=== PATIENT | female | born 1965 | race Caucasian/White ===

== ENCOUNTER 2021-01-18 17:06 | Inpatient (IN) | payer OTHER, MEDICAID, SELFPAY ==
--- NOTE | ~2021-01-18 | MR_ITS ---
MRI OF THE BRAIN WITH AND WITHOUT IV CONTRAST INDICATION: Cognitive decline. COMPARISON: None available. TECHNIQUE: Multiplanar multisequence MR imaging of the brain was obtained without and following the administration of 6.5 mL of Gadavist without complication. FINDINGS: There is no pathologic intracranial enhancement. There are T2 signal changes throughout the supratentorial white matter with a periventricular concentration. Differential considerations include the sequela of demyelinating disease, vasculopathy, or other white matter process. There are no enhancing lesions. There is no hydrocephalus, extra-axial surface collection, or herniation. The major flow voids at the skull base are preserved. There is no acute infarct on diffusion-weighted imaging. There is no intracranial hemorrhage on the gradient recalled echo acquisition. The midline structures are normal. The cerebellar tonsils are normally positioned. The cerebellum and brainstem are normal. The craniocervical junction is normal. Osseous marrow signal intensity is homogenous. The visualized soft tissues are unremarkable. MR/MR head/brain wo/w con IMPRESSION: There are T2 signal changes throughout the supratentorial white matter with a periventricular concentration. Differential considerations include the sequela of demyelinating disease, vasculopathy, or other white matter process. There are no enhancing lesions.
[2021-01-18 18:22] VITALS: BP 119/67; PULSE 90; RESP 18; TEMP 36.8; O2SAT 95; BMI 21.1
[2021-01-18 20:32] LABS: MANUAL DIFF FLAG NO
[2021-01-18 20:33] LABS: Basophils Percent Auto 0.3 % (0-2); Eosinophils Percent Auto 0.1 % (0-4); Hemoglobin 13.7 g/dl (12.0-16.0); Imm Gran Abs Auto 0.04 X10*3/uL (0.00-0.03); Imm Gran Pct Auto 0.5 % (0.0-0.4); Lymphocytes Absolute Auto 3.1 X10*3/uL (1.2-4.9); Mean Corpuscular HGB Conc 32.6 g/dl (31.0-35.0); Mean Corpuscular Hemoglobin 26.5 pg (27.0-33.0); Mean Corpuscular Volume 81.2 fL (80-98); Mean Platelet Volume 8.5 fL (9.4-12.3); Monocytes Absolute Auto 0.4 X10*3/uL (0.1-1.2); Monocytes Percent Auto 4.6 % (2-11); Neutrophils Absolute Auto 4.1 X10*3/uL (2.0-8.3); Neutrophils Percent Auto 53.5 % (45-73); Platelet Count 299 X10*3/uL (160-400); Red Blood Count 5.17 X10*6/uL (4.20-5.50); Red Cell Distribution Width 15.2 % (11.0-16.0); White Blood Count 7.6 X10*3/uL (4.8-10.8)
[2021-01-18 21:02] LABS: Ethanol < 10 mg/dL
[2021-01-18 21:06] LABS: Alanine Aminotransferase 18 U/L (0-31); Albumin Level 4.2 g/dL (3.5-5.0); Alkaline Phosphatase 80 U/L (39-117); Anion Gap 12 (12-20); Aspartate Amino Transferase 15 U/L (5-31); Bilirubin Total 0.3 mg/dL (0.0-1.0); Blood Urea Nitrogen 11 mg/dL (9-16); Carbon Dioxide 26 mmol/L (22-29); Chloride 106 mmol/L (96-108); Estimated Glomerular Filt Rate > 60; Glucose Random 109 mg/dL (60-115); Potassium 4.1 mmol/L (3.3-5.1); Sodium 140 mmol/L (135-145); Total Protein 6.6 g/dL (6.5-8.0)
[2021-01-18 21:06] LABS: Magnesium 2.2 mg/dL (1.6-2.6)
--- NOTE | 2021-01-18 22:10 | PC.NURSE ---
MD AT BEDSIDE WITH PT. PT IS TEARFUL SPEAKING WITH MD. PT ALERT, RESPIRATIONS EASY, N/L. CONTACTING POISON CONTROL AT THIS TIME.
--- NOTE | 2021-01-18 22:21 | ECG_ITS ---
Test Reason : OD Blood Pressure : / mmHG Vent. Rate : 083 BPM Atrial Rate : 083 BPM P-R Int : 146 ms QRS Dur : 094 ms QT Int : 386 ms P-R-T Axes : 080 077 070 degrees QTc Int : 453 ms Normal sinus rhythm Biatrial enlargement Nonspecific ST abnormality Abnormal ECG No previous ECGs available Referred By: Jennifer Valdez Electronically Signed By:DANNY SIERRA MD
--- NOTE | 2021-01-18 22:22 | ED.ALCOHOL ---
HPI - Alcohol General Chief Complaint: ETOH/Substance Use Stated Complaint: overdose Time Seen by Provider: 01/18/21 22:19 Source: patient Mode of arrival: ambulatory History of Present Illness HPI narrative: 55-year-old female without significant past medical history other than history of alcohol dependence who states that she has been without alcohol for ?weeks? but then today was unable to control her urge and drink a combination of hand distance learning administrator is a that were both isopropyl and ethyl alcohol and formulation. Patient states that the total volume was approximately 6 oz. She also states that EN route her stopped off and she brought a beer which she drank prior to arrival. She denies any suicidal ideation, but states that she really needs help and is tearful. She states that she has a really bad headache but denies any visual disturbances, nausea, vomiting. 10/20/2034: Patient cleared by poison Control. Related Data Allergies Allergy/AdvReac Type Severity Reaction Status Date / Time No Known Allergies Allergy Verified 01/18/21 18:21 Review of Systems Review of Systems: Pertinent positives and negatives as stated in HPI 10 point review of systems is otherwise negative. PMFSH Past Medical History Source: nursing notes reviewed Medical History Alcohol abuse Social History Social History Advance Directives: No Advance Directives Information Provided: Yes Physical Exam Vital Signs: Vital Signs: Last Vital Signs Temp 98.2 F 01/18/21 18:22 Pulse 90 01/18/21 18:22 Resp 18 01/18/21 18:22 BP 119/67 01/18/21 18:22 Pulse Ox 95 01/18/21 18:22 Body Mass Index 21.1 VITAL SIGNS: Reviewed. GENERAL: Well developed, well nourished, in no acute distress. HEAD: Normocephalic/atraumatic EYES: PERRLA, EOMI NOSE: Nares patent bilateral OROPHARYNX: no oral lesions noted, posterior pharynx clear NECK: Supple, no adenopathy LUNGS: Normal breath sounds. No adventitious sounds or accessory muscle use. SpO2<95> CARDIOVASCULAR: Regular rate and rhythm without noted murmurs ABDOMEN: Soft, non-tender, non-distended with bowel sounds. NEUROLOGIC: Alert and oriented x 4. PSYCH: Tearful Course Course Course Narrative: This is a 55-year-old female with history and clinical presentation consistent with alcohol dependence which prompted her to use hand distance learning administrator as an alcohol source. Poison control was contacted and given the time frame they cleared the patient for any toxic symptoms. In addition, patient denies any suicidal or depressive symptoms and states that she wants assistance with abstaining from alcohol. Review of all laboratory investigations are negative for any acute findings. Care team came by and discussed with patient the inability to provide an inpatient setting for her alcohol detox rehabilitation. Patient also endorses that she wishes to go home. Confirmed with the care team that summary from the recovery team would contact the patient tomorrow in an attempt to arrange for an outpatient/inpatient program that would further assist the patient. Otherwise, patient is discharged home in stable condition. MDM - Alcohol Lab Data Result diagrams: 01/18/21 20:24 01/18/21 20:25 Labs: Lab Results 01/18/21 01/18/21 01/18/21 Range/Units 20:24 20:24 20:24 WBC 7.6 (4.8-10.8) X10*3/uL RBC 5.17 (4.20-5.50) X10*6/uL Hgb 13.7 (12.0-16.0) g/dl Hct 42.0 (37-47) % MCV 81.2 (80-98) fL MCH 26.5 L (27.0-33.0) pg MCHC 32.6 (31.0-35.0) g/dl RDW 15.2 (11.0-16.0) % Plt Count 299 (160-400) X10*3/uL MPV 8.5 L (9.4-12.3) fL Immature Gran % (Auto) 0.5 H (0.0-0.4) % Neut % (Auto) 53.5 (45-73) % Lymph % (Auto) 41.0 H (20-40) % [place] % (Auto) 4.6 (2-11) % Eos % (Auto) 0.1 (0-4) % Baso % (Auto) 0.3 (0-2) % Lymph # (Auto) 3.1 (1.2-4.9) X10*3/uL [place] # (Auto) 0.4 (0.1-1.2) X10*3/uL Eos # (Auto) 0.0 (0.0-0.4) X10*3/uL Baso # (Auto) 0.0 (0.0-0.2) X10*3/uL Abs Immat Gran (auto) 0.04 H (0.00-0.03) X10*3/uL Absolute Neuts (auto) 4.1 (2.0-8.3) X10*3/uL Absolute Nucleated RBC 0.000 (0.0-0.012) X10*3/uL Nucleated RBC % (auto) 0.0 (0.0-0.2) /100WBC PT (10.8-13.0) SEC INR (0.9-1.1) Sodium (135-145) mmol/L Potassium (3.3-5.1) mmol/L Chloride (96-108) mmol/L Carbon Dioxide (22-29) mmol/L Anion Gap (12-20) BUN (9-16) mg/dL Creatinine (0.5-1.4) mg/dL Estim Creat Clear Calc Estimated GFR Random Glucose (60-115) mg/dL Calcium (8.4-10.2) mg/dL Magnesium 2.2 (1.6-2.6) mg/dL Total Bilirubin (0.0-1.0) mg/dL AST (5-31) U/L ALT (0-31) U/L Alkaline Phosphatase (39-117) U/L Total Protein (6.5-8.0) g/dL Albumin (3.5-5.0) g/dL Urine Color Urine Appearance Urine pH (5.0-8.0) Ur Specific Wren (1.005-1.025) Urine Protein (NEG-TRACE) MG/DL Urine Glucose (UA) (NEG) MG/DL Urine Ketones (NEG) MG/DL Urine Blood (NEG) Urine Nitrite (NEG) Ur Leukocyte Esterase (NEG) Urine RBC (0) /HPF Urine WBC (0-4) /HPF Ur Squamous Epith Cells /LPF Urine Bacteria /LPF Urine Mucus /LPF Salicylates (15-30) mg/dL Urine Opiates Screen (Not Detect) Acetaminophen (<30) mcg/mL Ur Barbiturates Screen (Not Detect) Ur Phencyclidine Scrn (Not Detect) Ur Amphetamines Screen (Not Detect) U Benzodiazepines Scrn (Not Detect) Urine Cocaine Screen (Not Detect) U Marijuana (THC) Screen (Not Detect) Ethyl Alcohol < 10 mg/dL 01/18/21 01/18/21 01/18/21 Range/Units 20:25 23:13 23:13 WBC (4.8-10.8) X10*3/uL RBC (4.20-5.50) X10*6/uL Hgb (12.0-16.0) g/dl Hct (37-47) % MCV (80-98) fL MCH (27.0-33.0) pg MCHC (31.0-35.0) g/dl RDW (11.0-16.0) % Plt Count (160-400) X10*3/uL MPV (9.4-12.3) fL Immature Gran % (Auto) (0.0-0.4) % Neut % (Auto) (45-73) % Lymph % (Auto) (20-40) % [place] % (Auto) (2-11) % Eos % (Auto) (0-4) % Baso % (Auto) (0-2) % Lymph # (Auto) (1.2-4.9) X10*3/uL [place] # (Auto) (0.1-1.2) X10*3/uL Eos # (Auto) (0.0-0.4) X10*3/uL Baso # (Auto) (0.0-0.2) X10*3/uL Abs Immat Gran (auto) (0.00-0.03) X10*3/uL Absolute Neuts (auto) (2.0-8.3) X10*3/uL Absolute Nucleated RBC (0.0-0.012) X10*3/uL Nucleated RBC % (auto) (0.0-0.2) /100WBC PT (10.8-13.0) SEC INR (0.9-1.1) Sodium 140 (135-145) mmol/L Potassium 4.1 (3.3-5.1) mmol/L Chloride 106 (96-108) mmol/L Carbon Dioxide 26 (22-29) mmol/L Anion Gap 12 (12-20) BUN 11 (9-16) mg/dL Creatinine 0.69 (0.5-1.4) mg/dL Estim Creat Clear Calc 89.0 Estimated GFR > 60 Random Glucose 109 (60-115) mg/dL Calcium 9.0 (8.4-10.2) mg/dL Magnesium (1.6-2.6) mg/dL Total Bilirubin 0.3 (0.0-1.0) mg/dL AST 15 (5-31) U/L ALT 18 (0-31) U/L Alkaline Phosphatase 80 (39-117) U/L Total Protein 6.6 (6.5-8.0) g/dL Albumin 4.2 (3.5-5.0) g/dL Urine Color YELLOW Urine Appearance CLEAR Urine pH 6.0 (5.0-8.0) Ur Specific Wren 1.010 (1.005-1.025) Urine Protein NEG (NEG-TRACE) MG/DL Urine Glucose (UA) NEG (NEG) MG/DL Urine Ketones NEG (NEG) MG/DL Urine Blood NEG (NEG) Urine Nitrite NEG (NEG) Ur Leukocyte Esterase NEG (NEG) Urine RBC 0-2 (0) /HPF Urine WBC 0-2 (0-4) /HPF Ur Squamous Epith Cells TRACE /LPF Urine Bacteria NONE /LPF Urine Mucus TRACE /LPF Salicylates (15-30) mg/dL Urine Opiates Screen Not Detected (Not Detect) Acetaminophen (<30) mcg/mL Ur Barbiturates Screen Not Detected (Not Detect) Ur Phencyclidine Scrn Not Detected (Not Detect) Ur Amphetamines Screen Not Detected (Not Detect) U Benzodiazepines Scrn Not Detected (Not Detect) Urine Cocaine Screen Not Detected (Not Detect) U Marijuana (THC) Screen Not Detected (Not Detect) Ethyl Alcohol mg/dL 01/18/21 01/18/21 Range/Units 23:14 23:14 WBC (4.8-10.8) X10*3/uL RBC (4.20-5.50) X10*6/uL Hgb (12.0-16.0) g/dl Hct (37-47) % MCV (80-98) fL MCH (27.0-33.0) pg MCHC (31.0-35.0) g/dl RDW (11.0-16.0) % Plt Count (160-400) X10*3/uL MPV (9.4-12.3) fL Immature Gran % (Auto) (0.0-0.4) % Neut % (Auto) (45-73) % Lymph % (Auto) (20-40) % [place] % (Auto) (2-11) % Eos % (Auto) (0-4) % Baso % (Auto) (0-2) % Lymph # (Auto) (1.2-4.9) X10*3/uL [place] # (Auto) (0.1-1.2) X10*3/uL Eos # (Auto) (0.0-0.4) X10*3/uL Baso # (Auto) (0.0-0.2) X10*3/uL Abs Immat Gran (auto) (0.00-0.03) X10*3/uL Absolute Neuts (auto) (2.0-8.3) X10*3/uL Absolute Nucleated RBC (0.0-0.012) X10*3/uL Nucleated RBC % (auto) (0.0-0.2) /100WBC PT 10.0 L (10.8-13.0) SEC INR 0.8 L (0.9-1.1) Sodium (135-145) mmol/L Potassium (3.3-5.1) mmol/L Chloride (96-108) mmol/L Carbon Dioxide (22-29) mmol/L Anion Gap (12-20) BUN (9-16) mg/dL Creatinine (0.5-1.4) mg/dL Estim Creat Clear Calc Estimated GFR Random Glucose (60-115) mg/dL Calcium (8.4-10.2) mg/dL Magnesium (1.6-2.6) mg/dL Total Bilirubin (0.0-1.0) mg/dL AST (5-31) U/L ALT (0-31) U/L Alkaline Phosphatase (39-117) U/L Total Protein (6.5-8.0) g/dL Albumin (3.5-5.0) g/dL Urine Color Urine Appearance Urine pH (5.0-8.0) Ur Specific Wren (1.005-1.025) Urine Protein (NEG-TRACE) MG/DL Urine Glucose (UA) (NEG) MG/DL Urine Ketones (NEG) MG/DL Urine Blood (NEG) Urine Nitrite (NEG) Ur Leukocyte Esterase (NEG) Urine RBC (0) /HPF Urine WBC (0-4) /HPF Ur Squamous Epith Cells /LPF Urine Bacteria /LPF Urine Mucus /LPF Salicylates < 5.0 L (15-30) mg/dL Urine Opiates Screen (Not Detect) Acetaminophen < 1 (<30) mcg/mL Ur Barbiturates Screen (Not Detect) Ur Phencyclidine Scrn (Not Detect) Ur Amphetamines Screen (Not Detect) U Benzodiazepines Scrn (Not Detect) Urine Cocaine Screen (Not Detect) U Marijuana (THC) Screen (Not Detect) Ethyl Alcohol mg/dL Discharge Plan Discharge Clinical Impression: Alcohol dependence, Accidental poisoning by isopropanol Patient Disposition: Home, Self-Care Instructions: Alcohol Dependence (ED), Alcohol Use Disorder (ED) Additional Instructions: Please resume all home medications as prescribed. The recovery team will be contacting you in the morning to discuss options for your continued abstinence from alcohol. Return to the emergency room for any acute worsening of your symptoms, or should you require further support. Referrals: Physician,Unknown [Primary Care Provider] - 2 days
--- NOTE | 2021-01-18 22:30 | PC.NURSE ---
POISON CONTROL CONTACTED SPOKE WITH [facility]. PT IS CLEARED BY POISON CONTROL SINCE LABS ARE NORMAL AND IT IS 7 HOURS POST INGESTION. NO FURTHER ORDERS NEEDED. DR. ANGELES AWARE.
--- NOTE | 2021-01-18 22:59 | PC.NURSE ---
CARE TEAM AT BEDSIDE SPEAKING WITH PT.
--- NOTE | 2021-01-18 23:18 | MHC.CARE ---
Met with pt regarding substance use. Pt reports she is interested in detox services due to her daily alcohol consumption. Pt reports she feels unwell however is not interested in remaining in the ED to await detox admission.
--- NOTE | 2021-01-18 23:22 | PC.NURSE ---
labs drawn to lab. UA obtained. Pt up to restroom with steady even gait to restroom.
[2021-01-18 23:33] LABS: Glucose Urine UA NEG (NEG); Leukocyte Esterase Urine NEG (NEG); Nitrite Urine NEG (NEG); Urine Blood NEG (NEG); Urine Ketones NEG (NEG); Urine Protein NEG (NEG-TRACE)
[2021-01-18 23:34] LABS: INTERNATIONAL NORM RATIO 0.8 (0.9-1.1)
[2021-01-18 23:35] LABS: Appearance Urine CLEAR; Color Urine YELLOW
[2021-01-18 23:43] LABS: Mucus Urine TRACE /LPF; RBC Urine 0-2 /HPF (0); Squamous Epithelial Cell Urine TRACE /LPF; WBC Urine 0-2 /HPF (0-4)
[2021-01-18 23:51] LABS: Amphetamine Screen Urine Not Detected (Not Detect); Barbiturates, Urine Not Detected (Not Detect); Benzodiazepines Screen Urine Not Detected (Not Detect); Cannabinoid Screen Urine Not Detected (Not Detect); Cocaine Screen Urine Not Detected (Not Detect); Opiate Screen Urine Not Detected (Not Detect); Phencyclidine Screen Urine Not Detected (Not Detect)
[2021-01-18 23:56] LABS: Salicylate < 5.0 mg/dL (15-30)
[2021-01-18 23:57] LABS: Acetaminophen LAB < 1 mcg/mL (<30)
[2021-01-19] MEDS: Acetaminophen 325 MG TABLET 975 MG PO (00:46)
--- NOTE | 2021-01-19 00:47 | PC.NURSE ---
PT MEDICATED WITH TYLENOL PER EMAR.
--- NOTE | 2021-01-19 01:25 | PC.NURSE ---
pt now stating im having suicidal tendencies. aware and at the bedside with pt. Report given to XAVIER Villagran, Pt moved to the pod.
[2021-01-19] MEDS: chlordiazePOXIDE HCl 25 MG CAPSULE PO (01:42)
[2021-01-19 01:44] VITALS: BP 114/74; PULSE 75; RESP 16; TEMP 36.4; O2SAT 97
--- NOTE | 2021-01-19 01:50 | PC.NURSE ---
Patient just got transferred in to ED POD from main ED, patient alert and oriented, endorses suicidality, patient reported she under reported her drinking habit to the ED staff, patient reported she has a very bad headache received Tylenol 975 mg in ED at 0015 with no effect. CIWA assessed scored 11, provider notified/ordered Librium 25 mg/administered as ordered/pending effect, will continue to monitor.
[2021-01-19 01:59] LABS: COVID-19 Test Negative (Negative); IDNOW Serial# 9DD0AD1C
[2021-01-19 08:16] VITALS: BP 132/78; PULSE 92; TEMP 36; O2SAT 97
[2021-01-19] MEDS: chlordiazePOXIDE HCl 25 MG CAPSULE 50 MG PO (08:26)
[2021-01-19] MEDS: Acetaminophen 325 MG TABLET 650 MG PO (08:26)
[2021-01-19] MEDS: Baclofen 10 MG TABLET PO ×2 (08:51→21:36)
[2021-01-19] MEDS: Levothyroxine Sodium 25 MCG TABLET PO (08:51)
[2021-01-19] MEDS: buPROPion HCl XL 300 MG TAB.ER.24H PO ×2 (08:51→21:36)
--- NOTE | 2021-01-19 11:13 | MHC.CARE ---
Pt is a 55 year old female who presented to [facility] for help with her alcohol use and wanting assistance accessing treatment. Pt reported initially upon discharge suicidal ideation with a plan to prevent discharge, I minimized my alcohol consumption and wanted to stay to get help getting further treatment . Pt reports long periods of sobriety however has struggled with maintaining her sobriety since 2018.Pt reports significant alcohol use and reports she will drink whatever she has access to. Pt denies sleep and appetite disturbances. Pt denies SI/HI/AH/VH or history. Pt advocating for a detox placement.
[2021-01-19 11:43] VITALS: BP 135/69; PULSE 80; TEMP 36.9; O2SAT 98
--- NOTE | 2021-01-19 12:26 | MHC.CARE ---
Pts Ankush, left a VM for t/w stating i have important informatin to provide . CARE Team attempting to contact , for further collateral information.
[2021-01-19 13:46] VITALS: BP 113/78; PULSE 85; RESP 18; TEMP 36.1; O2SAT 95
--- NOTE | 2021-01-19 16:34 | PC.NURSE ---
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
[2021-01-19] MEDS: traZODone HCL 100 MG TABLET PO (21:36)
[2021-01-19] MEDS: Doxepin HCl 25 MG CAPSULE 100 MG PO (21:36)
--- NOTE | 2021-01-19 22:40 | PC.NURSE ---
Patient compliant with HS PO medication.
[2021-01-20 06:00] VITALS: BP 112/67; PULSE 72; RESP 12; TEMP 36.8; O2SAT 98
[2021-01-20] MEDS: Levothyroxine Sodium 25 MCG TABLET PO (07:10)
--- NOTE | 2021-01-20 08:02 | MHC.CARE ---
51A filed. Pt not aware.
[2021-01-20] MEDS: Baclofen 10 MG TABLET PO ×2 (09:14→20:24)
[2021-01-20 09:26] VITALS: BP 101/69; PULSE 80; RESP 16; TEMP 36.5; O2SAT 99
[2021-01-20] MEDS: chlordiazePOXIDE HCl 25 MG CAPSULE 50 MG PO (11:17)
--- NOTE | 2021-01-20 13:27 | MHC.CARE ---
Bed search exhausted.
[2021-01-20 15:29] VITALS: RESP 16
[2021-01-20 16:37] VITALS: RESP 16
[2021-01-20] MEDS: hydrOXYzine HCL 50 MG TABLET PO (20:24)
[2021-01-20] MEDS: Doxepin HCl 25 MG CAPSULE 100 MG PO (20:24)
[2021-01-20] MEDS: traZODone HCL 100 MG TABLET PO (20:24)
[2021-01-20] MEDS: buPROPion HCl XL 300 MG TAB.ER.24H PO (20:25)
[2021-01-20] MEDS: LORazepam 1 MG TABLET PO (20:25)
--- NOTE | 2021-01-20 21:00 | PC.NURSE ---
Patient reported she is withdrawing, scored 5 on CIWA mainly for headache, provider ordered Ativan 1 mg, administered with her rest of HS medication, no other distress reported, will continue to monitor.
--- NOTE | 2021-01-21 | ECG_ITS ---
Test Reason : QTC Blood Pressure : / mmHG Vent. Rate : 067 BPM Atrial Rate : 067 BPM P-R Int : 154 ms QRS Dur : 102 ms QT Int : 424 ms P-R-T Axes : 071 068 054 degrees QTc Int : 448 ms Normal sinus rhythm Possible Left atrial enlargement Incomplete right bundle branch block Nonspecific ST abnormality Abnormal ECG When compared with ECG of 18-JAN-2021 17:12, No significant changes seen Referred By: Roshni Mcneil Electronically Signed By:MINERVA MALDONADO
[2021-01-21 05:52] VITALS: BP 105/66; PULSE 72; RESP 16; TEMP 36.6; O2SAT 100
--- NOTE | 2021-01-21 07:07 | PC.NURSE ---
received report from prior RN patient appears in no distress appears asleep breathing even and unlabored.
[2021-01-21] MEDS: Levothyroxine Sodium 25 MCG TABLET PO (07:12)
[2021-01-21 07:27] VITALS: BP 116/76; PULSE 69; RESP 15; TEMP 36.4; O2SAT 96
[2021-01-21] MEDS: Baclofen 10 MG TABLET PO ×2 (08:30→21:18)
[2021-01-21] MEDS: buPROPion HCl XL 300 MG TAB.ER.24H PO (09:00)
[2021-01-21] MEDS: hydrOXYzine HCL 50 MG TABLET PO (14:07)
[2021-01-21] MEDS: LORazepam 0.5 MG TABLET PO (15:59)
[2021-01-21 18:00] VITALS: BP 116/57; PULSE 75; TEMP 36.7
[2021-01-21] MEDS: traZODone HCL 100 MG TABLET PO (21:18)
[2021-01-21] MEDS: Doxepin HCl 25 MG CAPSULE 100 MG PO (21:18)
--- NOTE | 2021-01-22 00:24 | PC.ADMIT ---
Patient is a 55 year old Hungarian speaking female admitted as a CV admission to at 1645 and placed on 5 minute safety checks. She was admitted due to alcohol use and was evaluated initially for an EATs bed but then voiced SI patient met criteria for IPLOC. Patient has no previous admission to but has been in multiple treatment facilities in the past. She has apparently been consuming any products that contain alcohol in them. 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 Patient has significant PTSD symptoms and her expressed concerns to the CARE team. She has no other medical issues per her report. Patient said her SI is more related to her chronic use of alcohol rather than a desire to attempt a suicide via an acute method. Patient initially expressed mild withdrawal symptoms but was asleep before 2200 and resting quietly. Provider was notified of admission. Patient was able to complete the paperwork and was active during the admission process. She also ate dinner, showered and took HS medications. Patient safety checks are now 15 minutes.
[2021-01-22 05:43] VITALS: BP 135/66; PULSE 62; RESP 16; TEMP 35.8; O2SAT 97
[2021-01-22] MEDS: Levothyroxine Sodium 25 MCG TABLET PO (06:41)
[2021-01-22 08:34] LABS: Cholesterol 188 mg/dL; HDL Cholesterol 51 mg/dL; LDL Cholesterol Calculated 109 mg/dl; Triglycerides 141 mg/dL
[2021-01-22 08:54] LABS: Thyroid Stimulating Hormone 0.19 uIU/mL (0.32-4.0)
[2021-01-22] MEDS: Baclofen 10 MG TABLET PO ×2 (09:24→21:39)
[2021-01-22] MEDS: buPROPion HCl XL 300 MG TAB.ER.24H PO (09:24)
[2021-01-22 10:14] LABS: Folate 12.3 ng/mL (> or = 4.0); Vitamin B12 < 146 pg/mL (200-900)
[2021-01-22 10:37] LABS: Estimated Average Glucose 97 mg/dL
[2021-01-22] MEDS: Gabapentin 100 MG CAPSULE 200 MG PO ×2 (14:41→21:40)
[2021-01-22] MEDS: Folic Acid 1 MG TABLET PO (14:41)
[2021-01-22] MEDS: Cyanocobalamin (Vitamin B-12) 1,000 MCG TABLET 1000 MCG PO (14:41)
[2021-01-22] MEDS: Thiamine HCL 100 MG TABLET PO (14:41)
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
[2021-01-22] MEDS: Nicotine 14 MG PATCH.TD24 TRANSDERMA (15:41)
[2021-01-22 18:00] VITALS: BP 133/68; PULSE 77; TEMP 36.4
[2021-01-22] MEDS: Doxepin HCl 25 MG CAPSULE 100 MG PO (21:39)
[2021-01-22] MEDS: Acetaminophen 325 MG TABLET 650 MG PO (21:39)
[2021-01-23 05:00] VITALS: BP 137/86; PULSE 70; TEMP 35.7; O2SAT 100
[2021-01-23] MEDS: Levothyroxine Sodium 25 MCG TABLET PO (05:06)
[2021-01-23] MEDS: Nicotine 14 MG PATCH.TD24 TRANSDERMA (08:29)
[2021-01-23] MEDS: buPROPion HCl XL 300 MG TAB.ER.24H PO (08:30)
[2021-01-23] MEDS: Gabapentin 100 MG CAPSULE 200 MG PO ×3 (08:30→21:03)
[2021-01-23] MEDS: Baclofen 10 MG TABLET PO ×2 (08:30→21:04)
[2021-01-23] MEDS: Folic Acid 1 MG TABLET PO (08:30)
[2021-01-23] MEDS: Thiamine HCL 100 MG TABLET PO (08:30)
[2021-01-23] MEDS: Cyanocobalamin (Vitamin B-12) 1,000 MCG TABLET 1000 MCG PO (08:30)
--- NOTE | 2021-01-23 09:45 | P.PNPSI_ITS ---
Subjective Subjective Date of Service: 01/24/21 Reason For Visit: SI Subjective Notes: Conditional Voluntary Healthcare Proxy: No Guardianship: No Interim History: Pt presents as tearful, does to some extend minimize impact of her alcohol use on her children and . 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 Pt tearful about many losses including not being able to get a job, having career on hold which she states she really loved. She reports feeling less anxious. She describes mood as depressed, h opeless, guilt/shame related to substance use. Per , some concerns about bizarre behaviors and wondering underlying cog/memory problems due to alcohol use. Will do head image and MOCA once mood more stable. 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 Medication Compliance: Yes Side effects from medications: No Attending Groups: Yes Review of Systems Review of Systems Pertinent positives and negatives as stated in HPI 10 point review of systems is otherwise negative. Constitutional: Reports weakness Cardiovascular: Denies chest pain, Denies lightheadedness and Denies dyspnea Respiratory: Denies dyspnea Gastrointestinal: Denies constipation and Denies diarrhea Denies tremor(s) and Reports weakness Mental Status Exam Mental Status Exam Narrative: Appearance: casually groomed, fair hygiene, in NAD Behavior: calm, cooperative Psychomotor: no agitation or retardation noted Speech: clear, normal rate/rhythm/volume, spontaneous TP: linear TC: no signs of psychosis, hopeless/helpless Mood: depressed Affect:blunted SI:passive, no plan or intent HI:none AH/VH:none Delusions:none Insight/judgment:fair x 2. Memory/cog: alert, oriented x 3. will complete moca as mood more stable Diagnostics Vital Signs (24Hr): Vital Signs - 24 hr 01/23/21 17:39 01/24/21 06:00 Temperature 97.8 F 96.9 F Pulse Rate 74 63 Respiratory Rate 16 16 Blood Pressure 126/76 134/65 Pulse Oximetry 99 97 Body Mass Index 21.1 Labs Results: 01/18/21 20:24 01/18/21 20:25 Labs: Laboratory Results - last 48 hr 01/22/21 01/22/21 07:58 07:59 Estimat Average Glucose 97 Hemoglobin A1c % 5.0 Vitamin B12 < 146 L Folate 12.3 Medications Medications Current Medications Generic Name Dose Route Start Last Admin Trade Name Freq PRN Reason Stop Dose Admin Acetaminophen 650 mg 01/21/21 14:05 01/22/21 21:39 Acetaminophen 325 Mg Tablet PO 650 mg Q6H PRN Administration Headache/Pain Mild Scale (1-3) Al Hydroxide/Mg Hydroxide 30 ml 01/21/21 14:05 Magnesium Hydrox/Alum Hydrox 30 Ml Oral.Susp PO Q6H PRN Heartburn/Nausea Baclofen 10 mg 01/19/21 09:00 01/24/21 09:32 Baclofen 10 Mg Tablet PO 10 mg BID NICHOLAS Administration Bupropion HCl 300 mg 01/21/21 09:00 01/24/21 09:32 Bupropion Hcl Xl 300 Mg Tab.Er.24h PO 300 mg DAILY NICHOLAS Administration Cyanocobalamin 1,000 mcg 01/22/21 13:45 01/24/21 09:32 Cyanocobalamin (Vitamin B-12) 1,000 Mcg Tablet PO 1,000 mcg DAILY NICHOLAS Administration Doxepin HCl 100 mg 01/19/21 21:00 01/23/21 21:03 Doxepin Hcl 25 Mg Capsule PO 100 mg BEDTIME NICHOLAS Administration Folic Acid 1 mg 01/22/21 13:35 01/24/21 09:32 Folic Acid 1 Mg Tablet PO 1 mg DAILY NICHOLAS Administration Gabapentin 300 mg 01/24/21 09:00 01/24/21 09:33 Gabapentin 300 Mg Capsule PO 300 mg TID NICHOLAS Administration Hydroxyzine HCl 50 mg 01/21/21 14:05 01/23/21 12:53 Hydroxyzine Hcl 25 Mg Tablet PO 50 mg Q6H PRN Administration Anxiety Levothyroxine Sodium 25 mcg 01/19/21 09:00 01/24/21 06:37 Levothyroxine Sodium 25 Mcg Tablet PO 25 mcg DAILY@0600 NICHOLAS Administration Magnesium Hydroxide 30 ml 01/21/21 14:05 Milk Of Magnesia 30 Ml Oral.Susp PO DAILY PRN Constipation Naltrexone HCl 25 mg 01/24/21 09:00 01/24/21 09:31 Naltrexone Hcl 50 Mg Tablet PO 25 mg DAILY NICHOLAS Administration Nicotine 14 mg 01/22/21 15:00 01/24/21 09:33 Nicotine 14 Mg Patch.Td24 TRANSDERMA 14 mg DAILY NICHOLAS Administration Nicotine Polacrilex 2 mg 01/22/21 14:57 Nicotine Polacrilex 2 Mg Lozenge BUCCAL Q2H PRN Nicotine Cravings Thiamine HCl 100 mg 01/22/21 13:35 01/24/21 09:31 Thiamine Hcl 100 Mg Tablet PO 100 mg DAILY NICHOLAS Administration Trazodone HCl 50 mg 01/21/21 14:05 Trazodone Hcl 50 Mg Tablet PO BEDTIME PRN Insomnia Allergies Allergies Allergy/AdvReac Type Severity Reaction Status Date / Time No Known Allergies Allergy Verified 01/18/21 18:21 Assessment & Plan Assessment & Plan (1) MDD (major depressive disorder), recurrent, severe, with psychosis: Status: Acute Code(s): F33.3 - Major depressive disorder, recurrent, severe with psychotic symptoms Assessment and Plan: 1. Continue Wellbutrin XL 300mg po daily- pt denies hx of seizures while with drawing. We did discussed that this medication lowers seizure threshold and her increase risk due to ongoing alcohol use. 2. Continue Doxepine 100mg po qhs. (2) Alcohol use disorder, severe, dependence: Status: Acute Code(s): F10.20 - Alcohol dependence, uncomplicated Assessment and Plan: 1. Start Gabapentin 200mg po TID 2. Thiamine 100mg po daily 3. Folic acid 1mg po daily 4. Will retry naltrexon, lower extremity rash less likely to be SJS (3) B12 nutritional deficiency: Status: Acute Code(s): E53.8 - Deficiency of other specified B group vitamins Assessment and Plan: 1. Continue cyanocobalamin 1000mcg po daily. Greater than 50% of the session was spent on counseling and/or coordination of care Reason for contiued inpatient stay Substantial Risk for: harm to self
[2021-01-23] MEDS: hydrOXYzine HCL 25 MG TABLET 50 MG PO (12:53)
[2021-01-23 17:39] VITALS: BP 126/76; PULSE 74; RESP 16; TEMP 36.6; O2SAT 99
[2021-01-23] MEDS: Doxepin HCl 25 MG CAPSULE 100 MG PO (21:03)
[2021-01-23] MEDS: traZODone HCL 100 MG TABLET PO (23:27)
[2021-01-24 06:00] VITALS: BP 134/65; PULSE 63; RESP 16; TEMP 36.1; O2SAT 97
[2021-01-24] MEDS: Levothyroxine Sodium 25 MCG TABLET PO (06:37)
[2021-01-24] MEDS: Thiamine HCL 100 MG TABLET PO (09:31)
[2021-01-24] MEDS: Naltrexone HCl 50 MG TABLET 25 MG PO (09:31)
[2021-01-24] MEDS: buPROPion HCl XL 300 MG TAB.ER.24H PO (09:32)
[2021-01-24] MEDS: Folic Acid 1 MG TABLET PO (09:32)
[2021-01-24] MEDS: Baclofen 10 MG TABLET PO ×2 (09:32→21:31)
[2021-01-24] MEDS: Cyanocobalamin (Vitamin B-12) 1,000 MCG TABLET 1000 MCG PO (09:32)
[2021-01-24] MEDS: Gabapentin 300 MG CAPSULE PO ×3 (09:33→21:31)
[2021-01-24] MEDS: Nicotine 14 MG PATCH.TD24 TRANSDERMA (09:33)
[2021-01-24 09:49] LABS: TSH reflex Free T4 0.49 uIU/mL (0.32-4.0)
[2021-01-24 12:42] VITALS: BMI 22.1
[2021-01-24] MEDS: LORazepam 1 MG TABLET 2 MG PO (13:49)
--- NOTE | 2021-01-24 16:26 | HO.PSYCHPN ---
Subjective Subjective Date of Service: 01/24/21 Reason For Visit: SI Interim History: Pt reports feeling less depressed and anxious today, but continues to endorse ruminations about her past, guilt/shame related to ongoing alcohol use. She reports feeling less anxious with gabapentin. She reports some improvement in sleep in that she is not waking up so frequently, but did need to take an trazodone. She denies SI/HI. She has been going to groups. She reports talking with family yesterday and feeling supported by them. Review of Systems Review of Systems Pertinent positives and negatives as stated in HPI 10 point review of systems is otherwise negative. Constitutional: Reports weakness Cardiovascular: Denies chest pain, Denies lightheadedness and Denies dyspnea Respiratory: Denies dyspnea Gastrointestinal: Denies constipation and Denies diarrhea Denies tremor(s) and Reports weakness Mental Status Exam Mental Status Exam Narrative: Appearance: casually groomed, fair hygiene, in NAD Behavior: calm, cooperative Psychomotor: no agitation or retardation noted Speech: clear, normal rate/rhythm/volume, spontaneous TP: linear TC: no signs of psychosis, hopeless/helpless Mood: depressed Affect:blunted SI:passive, no plan or intent HI:none AH/VH:none Delusions:none Insight/judgment:fair x 2. Memory/cog: alert, oriented x 3. will complete moca as mood more stable Diagnostics Vital Signs (24Hr): Vital Signs - 24 hr 01/23/21 17:39 01/24/21 06:00 Temperature 97.8 F 96.9 F Pulse Rate 74 63 Respiratory Rate 16 16 Blood Pressure 126/76 134/65 Pulse Oximetry 99 97 Body Mass Index 22.1 Labs Results: 01/18/21 20:24 01/18/21 20:25 Labs: Laboratory Results - last 48 hr 01/24/21 08:35 TSH 0.49 Medications Medications Current Medications Generic Name Dose Route Start Last Admin Trade Name Freq PRN Reason Stop Dose Admin Acetaminophen 650 mg 01/21/21 14:05 01/22/21 21:39 Acetaminophen 325 Mg Tablet PO 650 mg Q6H PRN Administration Headache/Pain Mild Scale (1-3) Al Hydroxide/Mg Hydroxide 30 ml 01/21/21 14:05 Magnesium Hydrox/Alum Hydrox 30 Ml Oral.Susp PO Q6H PRN Heartburn/Nausea Baclofen 10 mg 01/19/21 09:00 01/24/21 09:32 Baclofen 10 Mg Tablet PO 10 mg BID NICHOLAS Administration Bupropion HCl 300 mg 01/21/21 09:00 01/24/21 09:32 Bupropion Hcl Xl 300 Mg Tab.Er.24h PO 300 mg DAILY NICHOLAS Administration Cyanocobalamin 1,000 mcg 01/22/21 13:45 01/24/21 09:32 Cyanocobalamin (Vitamin B-12) 1,000 Mcg Tablet PO 1,000 mcg DAILY NICHOLAS Administration Doxepin HCl 100 mg 01/19/21 21:00 01/23/21 21:03 Doxepin Hcl 25 Mg Capsule PO 100 mg BEDTIME NICHOLAS Administration Folic Acid 1 mg 01/22/21 13:35 01/24/21 09:32 Folic Acid 1 Mg Tablet PO 1 mg DAILY NICHOLAS Administration Gabapentin 300 mg 01/24/21 09:00 01/24/21 14:51 Gabapentin 300 Mg Capsule PO 300 mg TID NICHOLAS Administration Hydroxyzine HCl 50 mg 01/21/21 14:05 01/23/21 12:53 Hydroxyzine Hcl 25 Mg Tablet PO 50 mg Q6H PRN Administration Anxiety Levothyroxine Sodium 25 mcg 01/19/21 09:00 01/24/21 06:37 Levothyroxine Sodium 25 Mcg Tablet PO 25 mcg DAILY@0600 NICHOLAS Administration Magnesium Hydroxide 30 ml 01/21/21 14:05 Milk Of Magnesia 30 Ml Oral.Susp PO DAILY PRN Constipation Naltrexone HCl 50 mg 01/25/21 09:00 Naltrexone Hcl 50 Mg Tablet PO DAILY NICHOLAS Nicotine 14 mg 01/22/21 15:00 01/24/21 09:33 Nicotine 14 Mg Patch.Td24 TRANSDERMA 14 mg DAILY NICHOLAS Administration Nicotine Polacrilex 2 mg 01/22/21 14:57 Nicotine Polacrilex 2 Mg Lozenge BUCCAL Q2H PRN Nicotine Cravings Thiamine HCl 100 mg 01/22/21 13:35 01/24/21 09:31 Thiamine Hcl 100 Mg Tablet PO 100 mg DAILY NICHOLAS Administration Trazodone HCl 50 mg 01/21/21 14:05 Trazodone Hcl 50 Mg Tablet PO BEDTIME PRN Insomnia Allergies Allergies Allergy/AdvReac Type Severity Reaction Status Date / Time No Known Allergies Allergy Verified 01/18/21 18:21 Assessment & Plan Assessment & Plan (1) MDD (major depressive disorder), recurrent, severe, with psychosis: Status: Acute Code(s): F33.3 - Major depressive disorder, recurrent, severe with psychotic symptoms Assessment and Plan: 1. Continue Wellbutrin XL 300mg po daily- pt denies hx of seizures while withdrawing. We did discussed that this medication lowers seizure threshold and her increase risk due to ongoing alcohol use. 2. Continue Doxepine 100mg po qhs. (2) Alcohol use disorder, severe, dependence: Status: Acute Code(s): F10.20 - Alcohol dependence, uncomplicated Assessment and Plan: 1. Start Gabapentin 200mg po TID 2. Thiamine 100mg po daily 3. Folic acid 1mg po daily 4. Will retry naltrexon, lower extremity rash less likely to be SJS (3) B12 nutritional deficiency: Status: Acute Code(s): E53.8 - Deficiency of other specified B group vitamins Assessment and Plan: 1. Continue cyanocobalamin 1000mcg po daily. Greater than 50% of the session was spent on counseling and/or coordination of care Reason for contiued inpatient stay Substantial Risk for: harm to self
[2021-01-24 18:00] VITALS: BP 152/78; PULSE 78; TEMP 36.6
[2021-01-24] MEDS: Doxepin HCl 25 MG CAPSULE 100 MG PO (21:31)
[2021-01-25 05:34] VITALS: BP 105/56; PULSE 62; RESP 16; TEMP 35.7; O2SAT 99
[2021-01-25] MEDS: buPROPion HCl XL 300 MG TAB.ER.24H PO (08:39)
[2021-01-25] MEDS: Gabapentin 300 MG CAPSULE PO ×3 (08:39→20:15)
[2021-01-25] MEDS: Baclofen 10 MG TABLET PO ×2 (08:39→20:15)
[2021-01-25] MEDS: Cyanocobalamin (Vitamin B-12) 1,000 MCG TABLET 1000 MCG PO (08:39)
[2021-01-25] MEDS: Folic Acid 1 MG TABLET PO (08:39)
[2021-01-25] MEDS: Naltrexone HCl 50 MG TABLET PO (08:39)
[2021-01-25] MEDS: Thiamine HCL 100 MG TABLET PO (08:39)
[2021-01-25] MEDS: Nicotine 14 MG PATCH.TD24 TRANSDERMA (08:43)
--- NOTE | 2021-01-25 09:54 | HO.PSYCHPN ---
Subjective Subjective Date of Service: 01/25/21 Reason For Visit: SI Interim History: Pt continues to report feeling less depressed and less anxious today, but continues to endorse ruminations about her past, guilt/shame related to ongoing alcohol use. She reports feeling less anxious with gabapentin. She reports some improvement in sleep in that she is not waking up so frequently. She denies SI/HI. She has been going to groups. She continues to report plan to transition to residential treatment program. Review of Systems Review of Systems Pertinent positives and negatives as stated in HPI 10 point review of systems is otherwise negative. Constitutional: Reports weakness Cardiovascular: Denies chest pain, Denies lightheadedness and Denies dyspnea Respiratory: Denies dyspnea Gastrointestinal: Denies constipation and Denies diarrhea Denies tremor(s) and Reports weakness Mental Status Exam Mental Status Exam Narrative: Appearance: casually groomed, fair hygiene, in NAD Behavior: calm, cooperative Psychomotor: no agitation or retardation noted Speech: clear, normal rate/rhythm/volume, spontaneous TP: linear TC: no signs of psychosis, hopeless/helpless Mood: depressed Affect:blunted SI:passive, no plan or intent HI:none AH/VH:none Delusions:none Insight/judgment:fair x 2. Memory/cog: alert, oriented x 3. will complete moca as mood more stable Diagnostics Vital Signs (24Hr): Vital Signs - 24 hr 01/24/21 18:00 01/25/21 05:34 Temperature 98 F 96.3 F L Pulse Rate 78 62 Respiratory Rate 16 Blood Pressure 152/78 H 105/56 L Pulse Oximetry 99 Body Mass Index 22.1 Labs Results: 01/18/21 20:24 01/18/21 20:25 Labs: Laboratory Results - last 48 hr 01/24/21 08:35 TSH 0.49 Medications Medications Current Medications Generic Name Dose Route Start Last Admin Trade Name Freq PRN Reason Stop Dose Admin Acetaminophen 650 mg 01/21/21 14:05 01/22/21 21:39 Acetaminophen 325 Mg Tablet PO 650 mg Q6H PRN Administration Headache/Pain Mild Scale (1-3) Al Hydroxide/Mg Hydroxide 30 ml 01/21/21 14:05 Magnesium Hydrox/Alum Hydrox 30 Ml Oral.Susp PO Q6H PRN Heartburn/Nausea Baclofen 10 mg 01/19/21 09:00 01/25/21 08:39 Baclofen 10 Mg Tablet PO 10 mg BID NICHOLAS Administration Bupropion HCl 300 mg 01/21/21 09:00 01/25/21 08:39 Bupropion Hcl Xl 300 Mg Tab.Er.24h PO 300 mg DAILY NICHOLAS Administration Cyanocobalamin 1,000 mcg 01/22/21 13:45 01/25/21 08:39 Cyanocobalamin (Vitamin B-12) 1,000 Mcg Tablet PO 1,000 mcg DAILY NICHOLAS Administration Doxepin HCl 100 mg 01/19/21 21:00 01/24/21 21:31 Doxepin Hcl 25 Mg Capsule PO 100 mg BEDTIME NICHOLAS Administration Folic Acid 1 mg 01/22/21 13:35 01/25/21 08:39 Folic Acid 1 Mg Tablet PO 1 mg DAILY NICHOLAS Administration Gabapentin 300 mg 01/24/21 09:00 01/25/21 08:39 Gabapentin 300 Mg Capsule PO 300 mg TID NICHOLAS Administration Hydroxyzine HCl 50 mg 01/21/21 14:05 01/23/21 12:53 Hydroxyzine Hcl 25 Mg Tablet PO 50 mg Q6H PRN Administration Anxiety Levothyroxine Sodium 25 mcg 01/19/21 09:00 01/24/21 06:37 Levothyroxine Sodium 25 Mcg Tablet PO 25 mcg DAILY@0600 NICHOLAS Administration Magnesium Hydroxide 30 ml 01/21/21 14:05 Milk Of Magnesia 30 Ml Oral.Susp PO DAILY PRN Constipation Naltrexone HCl 50 mg 01/25/21 09:00 01/25/21 08:39 Naltrexone Hcl 50 Mg Tablet PO 50 mg DAILY NICHOLAS Administration Nicotine 14 mg 01/22/21 15:00 01/25/21 08:43 Nicotine 14 Mg Patch.Td24 TRANSDERMA 14 mg DAILY NICHOLAS Administration Nicotine Polacrilex 2 mg 01/22/21 14:57 01/25/21 05:31 Nicotine Polacrilex 2 Mg Lozenge BUCCAL 2 mg Q2H PRN Administration Nicotine Cravings Thiamine HCl 100 mg 01/22/21 13:35 01/25/21 08:39 Thiamine Hcl 100 Mg Tablet PO 100 mg DAILY NICHOLAS Administration Trazodone HCl 50 mg 01/21/21 14:05 Trazodone Hcl 50 Mg Tablet PO BEDTIME PRN Insomnia Allergies Allergies Allergy/AdvReac Type Severity Reaction Status Date / Time No Known Allergies Allergy Verified 01/18/21 18:21 Assessment & Plan Assessment & Plan (1) MDD (major depressive disorder), recurrent, severe, with psychosis: Status: Acute Code(s): F33.3 - Major depressive disorder, recurrent, severe with psychotic symptoms Assessment and Plan: 1. Continue Wellbutrin XL 300mg po daily- pt denies hx of seizures while withdrawing. We did discussed that this medication lowers seizure threshold and her increase risk due to ongoing alcohol use. 2. Continue Doxepine 100mg po qhs. (2) Alcohol use disorder, severe, dependence: Status: Acute Code(s): F10.20 - Alcohol dependence, uncomplicated Assessment and Plan: 1. Start Gabapentin 200mg po TID 2. Thiamine 100mg po daily 3. Folic acid 1mg po daily 4. Will retry naltrexon, lower extremity rash less likely to be SJS (3) B12 nutritional deficiency: Status: Acute Code(s): E53.8 - Deficiency of other specified B group vitamins Assessment and Plan: 1. Continue cyanocobalamin 1000mcg po daily. Greater than 50% of the session was spent on counseling and/or coordination of care Reason for contiued inpatient stay Substantial Risk for: harm to self
[2021-01-25] MEDS: LORazepam 1 MG TABLET 2 MG PO (11:05)
[2021-01-25 18:00] VITALS: BP 140/70; PULSE 77; TEMP 36.9
[2021-01-25] MEDS: Doxepin HCl 25 MG CAPSULE 100 MG PO (20:14)
[2021-01-25] MEDS: traZODone HCL 50 MG TABLET PO (20:16)
[2021-01-26] MEDS: traZODone HCL 50 MG TABLET PO ×2 (00:57→22:09)
[2021-01-26 06:00] VITALS: BP 125/57; PULSE 73; RESP 18; TEMP 35.6; O2SAT 100
[2021-01-26] MEDS: Naltrexone HCl 50 MG TABLET PO (09:03)
[2021-01-26] MEDS: Baclofen 10 MG TABLET PO ×2 (09:03→20:03)
[2021-01-26] MEDS: Thiamine HCL 100 MG TABLET PO (09:03)
[2021-01-26] MEDS: Gabapentin 300 MG CAPSULE PO ×3 (09:03→20:03)
[2021-01-26] MEDS: buPROPion HCl XL 300 MG TAB.ER.24H PO (09:03)
[2021-01-26] MEDS: Cyanocobalamin (Vitamin B-12) 1,000 MCG TABLET 1000 MCG PO (09:03)
[2021-01-26] MEDS: Folic Acid 1 MG TABLET PO (09:03)
[2021-01-26] MEDS: Nicotine 14 MG PATCH.TD24 TRANSDERMA (09:04)
--- NOTE | 2021-01-26 09:31 | P.PNPSI_ITS ---
Subjective Subjective Date of Service: 01/26/21 Reason For Visit: SI Subjective Notes: Conditional Voluntary Healthcare Proxy: No Guardianship: No Medical Problems Affecting Mental Status: No Interim History: The patient reported some depressive symptoms but she is able to contract for safety. She is still feeling guilty for her alcohol use disorder that has impact her family and her job. No side effects with the current treatment. We discussed the possibility of using Gabapentin as a PRN. Medication Compliance: Yes Side effects from medications: No Attending Groups: Yes Mental Status Exam Mental Status Exam Patient Appearance: Well Grooomed Patient Orientation: Person, Place, Time and Situation Level of Consciousness: Awake and Appropriate Patient Behavior: Cooperative Mood Description: Depressed Affect Description: Constricted Patient Cognition Impaired: No Ability to Follow Directions: Good Speech Pattern: Clear Memory Description: Intact Hallucinations: None Delusions: Not Present Thought Process: Goal Oriented Thought Content: positive for Intact Judgement: Fair Diagnostics Vital Signs (24Hr): Vital Signs - 24 hr 01/25/21 18:00 01/26/21 06:00 Temperature 98.5 F 96.1 F L Pulse Rate 77 73 Respiratory Rate 18 Blood Pressure 140/70 H 125/57 L Pulse Oximetry 100 Body Mass Index 22.1 Labs Results: 01/18/21 20:24 01/18/21 20:25 Labs: Laboratory Results - last 48 hr 01/24/21 08:35 TSH 0.49 Imaging Radiology Impressions: ITS Impressions Brain MRI 01/25/21 11:59 IMPRESSION: There are T2 signal changes throughout the supratentorial white matter with a periventricular concentration. Differential considerations include the sequela of demyelinating disease, vasculopathy, or other white matter process. There are no enhancing lesions. Medications Medications Current Medications Generic Name Dose Route Start Last Admin Trade Name Freq PRN Reason Stop Dose Admin Acetaminophen 650 mg 01/21/21 14:05 01/22/21 21:39 Acetaminophen 325 Mg Tablet PO 650 mg Q6H PRN Administration Headache/Pain Mild Scale (1-3) Al Hydroxide/Mg Hydroxide 30 ml 01/21/21 14:05 Magnesium Hydrox/Alum Hydrox 30 Ml Oral.Susp PO Q6H PRN Heartburn/Nausea Baclofen 10 mg 01/19/21 09:00 01/26/21 09:03 Baclofen 10 Mg Tablet PO 10 mg BID NICHOLAS Administration Bupropion HCl 300 mg 01/21/21 09:00 01/26/21 09:03 Bupropion Hcl Xl 300 Mg Tab.Er.24h PO 300 mg DAILY NICHOLAS Administration Cyanocobalamin 1,000 mcg 01/22/21 13:45 01/26/21 09:03 Cyanocobalamin (Vitamin B-12) 1,000 Mcg Tablet PO 1,000 mcg DAILY NICHOLAS Administration Doxepin HCl 100 mg 01/19/21 21:00 01/25/21 20:14 Doxepin Hcl 25 Mg Capsule PO 100 mg BEDTIME NICHOLAS Administration Folic Acid 1 mg 01/22/21 13:35 01/26/21 09:03 Folic Acid 1 Mg Tablet PO 1 mg DAILY NICHOLAS Administration Gabapentin 300 mg 01/24/21 09:00 01/26/21 09:03 Gabapentin 300 Mg Capsule PO 300 mg TID NICHOLAS Administration Hydroxyzine HCl 50 mg 01/21/21 14:05 01/23/21 12:53 Hydroxyzine Hcl 25 Mg Tablet PO 50 mg Q6H PRN Administration Anxiety Levothyroxine Sodium 25 mcg 01/19/21 09:00 01/24/21 06:37 Levothyroxine Sodium 25 Mcg Tablet PO 25 mcg DAILY@0600 NICHOLAS Administration Magnesium Hydroxide 30 ml 01/21/21 14:05 Milk Of Magnesia 30 Ml Oral.Susp PO DAILY PRN Constipation Naltrexone HCl 50 mg 01/25/21 09:00 01/26/21 09:03 Naltrexone Hcl 50 Mg Tablet PO 50 mg DAILY NICHOLAS Administration Nicotine 14 mg 01/22/21 15:00 01/26/21 09:04 Nicotine 14 Mg Patch.Td24 TRANSDERMA 14 mg DAILY NICHOLAS Administration Nicotine Polacrilex 2 mg 01/22/21 14:57 01/25/21 05:31 Nicotine Polacrilex 2 Mg Lozenge BUCCAL 2 mg Q2H PRN Administration Nicotine Cravings Thiamine HCl 100 mg 01/22/21 13:35 01/26/21 09:03 Thiamine Hcl 100 Mg Tablet PO 100 mg DAILY NICHOLAS Administration Trazodone HCl 50 mg 01/21/21 14:05 01/26/21 00:57 Trazodone Hcl 50 Mg Tablet PO 50 mg BEDTIME PRN Administration Insomnia Allergies Allergies Allergy/AdvReac Type Severity Reaction Status Date / Time No Known Allergies Allergy Verified 01/18/21 18:21 Assessment & Plan Assessment & Plan (1) MDD (major depressive disorder), recurrent, severe, with psychosis: Status: Acute Code(s): F33.3 - Major depressive disorder, recurrent, severe with psychotic symptoms Assessment and Plan: 1. Continue Wellbutrin XL 300mg po daily- pt denies hx of seizures while withdr awing. We did discussed that this medication lowers seizure threshold and her increase risk due to ongoing alcohol use. 2. Continue Doxepine 100mg po qhs. (2) Alcohol use disorder, severe, dependence: Status: Acute Code(s): F10.20 - Alcohol dependence, uncomplicated Assessment and Plan: 1. Start Gabapentin 200mg po TID 2. Thiamine 100mg po daily 3. Folic acid 1mg po daily 4. Will retry naltrexon, lower extremity rash less likely to be SJS (3) B12 nutritional deficiency: Status: Acute Code(s): E53.8 - Deficiency of other specified B group vitamins Assessment and Plan: 1. Continue cyanocobalamin 1000mcg po daily. Greater than 50% of the session was spent on counseling and/or coordination of care Reason for contiued inpatient stay Substantial Risk for: inability to function, rapid decompensation and med/psych decompensation
[2021-01-26] MEDS: Gabapentin 100 MG CAPSULE PO (11:36)
[2021-01-26 18:00] VITALS: BP 137/86; PULSE 85; TEMP 36.8
[2021-01-26] MEDS: Doxepin HCl 25 MG CAPSULE 100 MG PO (20:03)
[2021-01-27] MEDS: Gabapentin 100 MG CAPSULE PO ×2 (00:42→17:29)
[2021-01-27] MEDS: traZODone HCL 50 MG TABLET PO (00:42)
[2021-01-27 06:15] VITALS: BP 119/71; PULSE 69; RESP 18; TEMP 36.3; O2SAT 98
--- NOTE | 2021-01-27 08:20 | P.PNPSI_ITS ---
Subjective Subjective Date of Service: 01/27/21 Reason For Visit: SI Interim History: The patient feels better she has got a job and she feels hopeful that she will be able to perform well. She took PRN for sleep last night. Less anxious but some residual symptoms. She agreed to increase Gabapentin up to 400 mg po tid. Medication Compliance: Yes Side effects from medications: No Mental Status Exam Mental Status Exam Patient Appearance: Well Grooomed and Appropriate Patient Orientation: Person, Place, Time and Situation Level of Consciousness: Awake and Appropriate Patient Behavior: Appropriate and Cooperative Mood Description: Calm Affect Description: Constricted Patient Cognition Impaired: No Ability to Follow Directions: Good Speech Pattern: Clear Memory Description: Intact Hallucinations: None Delusions: Not Present Thought Process: Goal Oriented Thought Content: positive for Intact Judgement: Fair Diagnostics Vital Signs (24Hr): Vital Signs - 24 hr 01/26/21 18:00 01/27/21 06:15 Temperature 98.3 F 97.4 F Pulse Rate 85 69 Respiratory Rate 18 Blood Pressure 137/86 119/71 Pulse Oximetry 98 Body Mass Index 22.1 Labs Results: 01/18/21 20:24 01/18/21 20:25 Imaging Radiology Impressions: ITS Impressions Brain MRI 01/25/21 11:59 IMPRESSION: There are T2 signal changes throughout the supratentorial white matter with a periventricular concentration. Differential considerations include the sequela of demyelinating disease, vasculopathy, or other white matter process. There are no enhancing lesions. Medications Medications Current Medications Generic Name Dose Route Start Last Admin Trade Name Freq PRN Reason Stop Dose Admin Acetaminophen 650 mg 01/21/21 14:05 01/22/21 21:39 Acetaminophen 325 Mg Tablet PO 650 mg Q6H PRN Administration Headache/Pain Mild Scale (1-3) Al Hydroxide/Mg Hydroxide 30 ml 01/21/21 14:05 Magnesium Hydrox/Alum Hydrox 30 Ml Oral.Susp PO Q6H PRN Heartburn/Nausea Baclofen 10 mg 01/19/21 09:00 01/26/21 20:03 Baclofen 10 Mg Tablet PO 10 mg BID NICHOLAS Administration Bupropion HCl 300 mg 01/21/21 09:00 01/26/21 09:03 Bupropion Hcl Xl 300 Mg Tab.Er.24h PO 300 mg DAILY NICHOLAS Administration Cyanocobalamin 1,000 mcg 01/22/21 13:45 01/26/21 09:03 Cyanocobalamin (Vitamin B-12) 1,000 Mcg Tablet PO 1,000 mcg DAILY NICHOLAS Administration Doxepin HCl 100 mg 01/19/21 21:00 01/26/21 20:03 Doxepin Hcl 25 Mg Capsule PO 100 mg BEDTIME NICHOLAS Administration Folic Acid 1 mg 01/22/21 13:35 01/26/21 09:03 Folic Acid 1 Mg Tablet PO 1 mg DAILY NICHOLAS Administration Gabapentin 300 mg 01/24/21 09:00 01/26/21 20:03 Gabapentin 300 Mg Capsule PO 300 mg TID NICHOLAS Administration Gabapentin 100 mg 01/26/21 10:30 01/27/21 00:42 Gabapentin 100 Mg Capsule PO 100 mg BID PRN Administration Anxiety Hydroxyzine HCl 50 mg 01/21/21 14:05 01/23/21 12:53 Hydroxyzine Hcl 25 Mg Tablet PO 50 mg Q6H PRN Administration Anxiety Levothyroxine Sodium 25 mcg 01/19/21 09:00 01/24/21 06:37 Levothyroxine Sodium 25 Mcg Tablet PO 25 mcg DAILY@0600 NICHOLAS Administration Magnesium Hydroxide 30 ml 01/21/21 14:05 Milk Of Magnesia 30 Ml Oral.Susp PO DAILY PRN Constipation Naltrexone HCl 50 mg 01/25/21 09:00 01/26/21 09:03 Naltrexone Hcl 50 Mg Tablet PO 50 mg DAILY NICHOLAS Administration Nicotine 14 mg 01/22/21 15:00 01/26/21 09:04 Nicotine 14 Mg Patch.Td24 TRANSDERMA 14 mg DAILY NICHOLAS Administration Nicotine Polacrilex 2 mg 01/22/21 14:57 01/25/21 05:31 Nicotine Polacrilex 2 Mg Lozenge BUCCAL 2 mg Q2H PRN Administration Nicotine Cravings Thiamine HCl 100 mg 01/22/21 13:35 01/26/21 09:03 Thiamine Hcl 100 Mg Tablet PO 100 mg DAILY NICHOLAS Administration Trazodone HCl 50 mg 01/21/21 14:05 01/27/21 00:42 Trazodone Hcl 50 Mg Tablet PO 50 mg BEDTIME PRN Administration Insomnia Allergies Allergies Allergy/AdvReac Type Severity Reaction Status Date / Time No Known Allergies Allergy Verified 01/18/21 18:21 Assessment & Plan Assessment & Plan (1) MDD (major depressive disorder), recurrent, severe, with psychosis: Status: Acute Code(s): F33.3 - Major depressive disorder, recurrent, severe with psychotic symptoms Assessment and Plan: 1. Continue Wellbutrin XL 300mg po daily- pt denies hx of seizures while with drawing. We did discussed that this medication lowers seizure threshold and her increase risk due to ongoing alcohol use. 2. Continue Doxepine 100mg po qhs. (2) Alcohol use disorder, severe, dependence: Status: Acute Code(s): F10.20 - Alcohol dependence, uncomplicated Assessment and Plan: 1. Increase Gabapentin up to 400mg po TID and PRN added 2. Thiamine 100mg po daily 3. Folic acid 1mg po daily 4. Naltrexon 50 mg (3) B12 nutritional deficiency: Status: Acute Code(s): E53.8 - Deficiency of other specified B group vitamins Assessment and Plan: 1. Continue cyanocobalamin 1000mcg po daily. Greater than 50% of the session was spent on counseling and/or coordination of care Reason for contiued inpatient stay Substantial Risk for: inability to function
[2021-01-27] MEDS: Nicotine 14 MG PATCH.TD24 TRANSDERMA (08:25)
[2021-01-27] MEDS: Folic Acid 1 MG TABLET PO (08:26)
[2021-01-27] MEDS: Thiamine HCL 100 MG TABLET PO (08:26)
[2021-01-27] MEDS: Gabapentin 300 MG CAPSULE PO ×3 (08:26→20:20)
[2021-01-27] MEDS: Cyanocobalamin (Vitamin B-12) 1,000 MCG TABLET 1000 MCG PO (08:26)
[2021-01-27] MEDS: buPROPion HCl XL 300 MG TAB.ER.24H PO (08:27)
[2021-01-27] MEDS: Baclofen 10 MG TABLET PO ×2 (08:27→20:19)
[2021-01-27] MEDS: Naltrexone HCl 50 MG TABLET PO (08:27)
[2021-01-27 18:00] VITALS: BP 130/66; PULSE 77; TEMP 36.7
[2021-01-27] MEDS: Doxepin HCl 25 MG CAPSULE 100 MG PO (20:19)
[2021-01-28] MEDS: Gabapentin 100 MG CAPSULE PO ×2 (01:01→10:39)
[2021-01-28 06:40] VITALS: BP 114/58; PULSE 72; TEMP 36.4
[2021-01-28] MEDS: Nicotine 14 MG PATCH.TD24 TRANSDERMA (08:02)
[2021-01-28] MEDS: Naltrexone HCl 50 MG TABLET PO (08:04)
[2021-01-28] MEDS: Folic Acid 1 MG TABLET PO (08:04)
[2021-01-28] MEDS: Thiamine HCL 100 MG TABLET PO (08:04)
[2021-01-28] MEDS: Cyanocobalamin (Vitamin B-12) 1,000 MCG TABLET 1000 MCG PO (08:04)
[2021-01-28] MEDS: Gabapentin 300 MG CAPSULE PO (08:04)
[2021-01-28] MEDS: buPROPion HCl XL 300 MG TAB.ER.24H PO (08:04)
[2021-01-28] MEDS: Baclofen 10 MG TABLET PO ×2 (08:04→20:30)
--- NOTE | 2021-01-28 08:40 | P.PNPSI_ITS ---
Subjective Subjective Date of Service: 01/28/21 Reason For Visit: SI Subjective Notes: Conditional Voluntary Interim History: The patient has attended groups, very visible in the unit, cooperative. She is future oriented and seems less dysphoric. No oversedation with the increase of Gabapentin. Today, we discussed her treatment, she feels much better and she proposed to add Antabuse as a deterrant for alcohol use disorder, she feels that with the addition of Antabuse, her would feel more secure. Medication Compliance: Yes Side effects from medications: No Attending Groups: No Mental Status Exam Mental Status Exam Patient Appearance: Well Grooomed Patient Orientation: Person, Place, Time and Situation Level of Consciousness: Awake and Appropriate Patient Behavior: Cooperative Mood Description: Calm and Appropriate Affect Description: Appropriate Patient Cognition Impaired: No Ability to Follow Directions: Good Speech Pattern: Clear Memory Description: Intact Hallucinations: None Delusions: Not Present Thought Process: Goal Oriented Thought Content: positive for Intact Judgement: Fair Diagnostics Vital Signs (24Hr): Vital Signs - 24 hr 01/27/21 18:00 01/28/21 06:40 Temperature 98.1 F 97.5 F Pulse Rate 77 72 Blood Pressure 130/66 114/58 L Body Mass Index 22.1 Labs Results: 01/18/21 20:24 01/18/21 20:25 Imaging Radiology Impressions: ITS Impressions Brain MRI 01/25/21 11:59 IMPRESSION: There are T2 signal changes throughout the supratentorial white matter with a periventricular concentration. Differential considerations include the sequela of demyelinating disease, vasculopathy, or other white matter process. There are no enhancing lesions. Medications Medications Current Medications Generic Name Dose Route Start Last Admin Trade Name Vikasq PRN Reason Stop Dose Admin Acetaminophen 650 mg 01/21/21 14:05 01/22/21 21:39 Acetaminophen 325 Mg Tablet PO 650 mg Q6H PRN Administration Headache/Pain Mild Scale (1-3) Al Hydroxide/Mg Hydroxide 30 ml 01/21/21 14:05 Magnesium Hydrox/Alum Hydrox 30 Ml Oral.Susp PO Q6H PRN Heartburn/Nausea Baclofen 10 mg 01/19/21 09:00 01/28/21 08:04 Baclofen 10 Mg Tablet PO 10 mg BID NICHOLAS Administration Bupropion HCl 300 mg 01/21/21 09:00 01/28/21 08:04 Bupropion Hcl Xl 300 Mg Tab.Er.24h PO 300 mg DAILY NICHOLAS Administration Cyanocobalamin 1,000 mcg 01/22/21 13:45 01/28/21 08:04 Cyanocobalamin (Vitamin B-12) 1,000 Mcg Tablet PO 1,000 mcg DAILY NICHOLAS Administration Doxepin HCl 100 mg 01/19/21 21:00 01/27/21 20:19 Doxepin Hcl 25 Mg Capsule PO 100 mg BEDTIME NICHOLAS Administration Folic Acid 1 mg 01/22/21 13:35 01/28/21 08:04 Folic Acid 1 Mg Tablet PO 1 mg DAILY NICHOLAS Administration Gabapentin 300 mg 01/24/21 09:00 01/28/21 08:04 Gabapentin 300 Mg Capsule PO 300 mg TID NICHOLAS Administration Gabapentin 100 mg 01/26/21 10:30 01/28/21 01:01 Gabapentin 100 Mg Capsule PO 100 mg BID PRN Administration Anxiety Hydroxyzine HCl 50 mg 01/21/21 14:05 01/23/21 12:53 Hydroxyzine Hcl 25 Mg Tablet PO 50 mg Q6H PRN Administration Anxiety Levothyroxine Sodium 25 mcg 01/19/21 09:00 01/24/21 06:37 Levothyroxine Sodium 25 Mcg Tablet PO 25 mcg DAILY@0600 NICHOLAS Administration Magnesium Hydroxide 30 ml 01/21/21 14:05 Milk Of Magnesia 30 Ml Oral.Susp PO DAILY PRN Constipation Naltrexone HCl 50 mg 01/25/21 09:00 01/28/21 08:04 Naltrexone Hcl 50 Mg Tablet PO 50 mg DAILY NICHOLAS Administration Nicotine 14 mg 01/22/21 15:00 01/28/21 08:02 Nicotine 14 Mg Patch.Td24 TRANSDERMA 14 mg DAILY NICHOLAS Administration Nicotine Polacrilex 2 mg 01/22/21 14:57 01/25/21 05:31 Nicotine Polacrilex 2 Mg Lozenge BUCCAL 2 mg Q2H PRN Administration Nicotine Cravings Thiamine HCl 100 mg 01/22/21 13:35 01/28/21 08:04 Thiamine Hcl 100 Mg Tablet PO 100 mg DAILY NICHOLAS Administration Trazodone HCl 50 mg 01/21/21 14:05 01/27/21 00:42 Trazodone Hcl 50 Mg Tablet PO 50 mg BEDTIME PRN Administration Insomnia Allergies Allergies Allergy/AdvReac Type Severity Reaction Status Date / Time No Known Allergies Allergy Verified 01/18/21 18:21 Assessment & Plan Assessment & Plan (1) MDD (major depressive disorder), recurrent, severe, with psychosis: Status: Acute Code(s): F33.3 - Major depressive disorder, recurrent, severe with psychotic symptoms Assessment and Plan: 1. Continue Wellbutrin XL 300mg po daily- pt denies hx of seizures while withdr awing. We did discussed that this medication lowers seizure threshold and her increase risk due to ongoing alcohol use. 2. Continue Doxepine 100mg po qhs. (2) Alcohol use disorder, severe, dependence: Status: Acute Code(s): F10.20 - Alcohol dependence, uncomplicated Assessment and Plan: 1. Keep Gabapentin 400mg po TID and PRN added 2. Thiamine 100mg po daily 3. Folic acid 1mg po daily 4. Naltrexon 50 mg. 5. Add Antabuse as per patient's request. (3) B12 nutritional deficiency: Status: Acute Code(s): E53.8 - Deficiency of other specified B group vitamins Assessment and Plan: 1. Continue cyanocobalamin 1000mcg po daily. Greater than 50% of the session was spent on counseling and/or coordination of care Reason for contiued inpatient stay Substantial Risk for: rapid decompensation and med/psych decompensation
[2021-01-28] MEDS: Gabapentin 400 MG CAPSULE PO ×2 (14:50→20:30)
[2021-01-28] MEDS: Acetaminophen 325 MG TABLET 650 MG PO (16:48)
[2021-01-28 18:40] VITALS: BP 128/72; PULSE 68; TEMP 36.6
[2021-01-28] MEDS: Doxepin HCl 25 MG CAPSULE 100 MG PO (20:31)
[2021-01-28] MEDS: traZODone HCL 50 MG TABLET PO ×2 (20:33→22:20)
[2021-01-29 06:00] VITALS: BP 138/88; PULSE 70; RESP 20; TEMP 36.8; O2SAT 99
[2021-01-29] MEDS: Nicotine 14 MG PATCH.TD24 TRANSDERMA (08:09)
[2021-01-29] MEDS: Naltrexone HCl 50 MG TABLET PO (08:10)
[2021-01-29] MEDS: Thiamine HCL 100 MG TABLET PO (08:10)
[2021-01-29] MEDS: Folic Acid 1 MG TABLET PO (08:10)
[2021-01-29] MEDS: Cyanocobalamin (Vitamin B-12) 1,000 MCG TABLET 1000 MCG PO (08:10)
[2021-01-29] MEDS: Gabapentin 400 MG CAPSULE PO ×3 (08:10→20:20)
[2021-01-29] MEDS: buPROPion HCl XL 300 MG TAB.ER.24H PO (08:10)
[2021-01-29] MEDS: Baclofen 10 MG TABLET PO ×2 (08:10→20:20)
[2021-01-29] MEDS: Gabapentin 100 MG CAPSULE PO (11:42)
[2021-01-29 12:41] LABS: Rheumatoid Factor < 15.0 IU/mL (<15.0)
[2021-01-29 13:03] LABS: Free T4 (Free Thyroxine) 0.78 ng/dL (0.71-1.85); Thyroid Stimulating Hormone 0.18 uIU/mL (0.32-4.0)
--- NOTE | 2021-01-29 13:42 | HO.PSYCHPN ---
Subjective Subjective Date of Service: 01/29/21 Reason For Visit: SI Interim History: Pt reports feeling anxious, overwhelmed by thoughts of effects of ongoing alcohol use on her family. She reports feeling powerless, shame/guilt related to ongoing alcohol use. She reports sleep last night was restless, in part due to intrusive and ruminative thoughts about her past. She denies SI/HI. She reports feeling irritable at times. She is attending assigned groups. Review of Systems Review of Systems Pertinent positives and negatives as stated in HPI 10 point review of systems is otherwise negative. Constitutional: Reports weakness Cardiovascular: Denies chest pain, Denies lightheadedness and Denies dyspnea Respiratory: Denies dyspnea Gastrointestinal: Denies constipation and Denies diarrhea Denies tremor(s) and Reports weakness Mental Status Exam Mental Status Exam Narrative: Appearance: casually groomed, fair hygiene, in NAD Behavior: calm, cooperative Psychomotor: no agitation or retardation noted Speech: clear, normal rate/rhythm/volume, spontaneous TP: linear TC: no signs of psychosis, hopeless/helpless Mood: depressed Affect:blunted SI:passive, no plan or intent HI:none AH/VH:none Delusions:none Insight/judgment:fair x 2. Memory/cog: alert, oriented x 3. will complete moca as mood more stable Diagnostics Vital Signs (24Hr): Vital Signs - 24 hr 01/28/21 18:40 01/29/21 06:00 Temperature 97.8 F 98.2 F Pulse Rate 68 70 Respiratory Rate 20 Blood Pressure 128/72 138/88 Pulse Oximetry 99 Body Mass Index 22.1 Labs Results: 01/18/21 20:24 01/18/21 20:25 Labs: Laboratory Results - last 48 hr 01/29/21 01/29/21 12:04 12:04 TSH 0.18 L Free T4 0.78 Rheumatoid Factor < 15.0 Imaging Radiology Impressions: ITS Impressions Brain MRI 01/25/21 11:59 IMPRESSION: There are T2 signal changes throughout the supratentorial white matter with a periventricular concentration. Differential considerations include the sequela of demyelinating disease, vasculopathy, or other white matter process. There are no enhancing lesions. Medications Medications Current Medications Generic Name Dose Route Start Last Admin Trade Name Freq PRN Reason Stop Dose Admin Acetaminophen 650 mg 01/21/21 14:05 01/28/21 16:48 Acetaminophen 325 Mg Tablet PO 650 mg Q6H PRN Administration Headache/Pain Mild Scale (1-3) Al Hydroxide/Mg Hydroxide 30 ml 01/21/21 14:05 Magnesium Hydrox/Alum Hydrox 30 Ml Oral.Susp PO Q6H PRN Heartburn/Nausea Baclofen 10 mg 01/19/21 09:00 01/29/21 08:10 Baclofen 10 Mg Tablet PO 10 mg BID NICHOLAS Administration Bupropion HCl 300 mg 01/21/21 09:00 01/29/21 08:10 Bupropion Hcl Xl 300 Mg Tab.Er.24h PO 300 mg DAILY NICHOLAS Administration Cyanocobalamin 1,000 mcg 01/22/21 13:45 01/29/21 08:10 Cyanocobalamin (Vitamin B-12) 1,000 Mcg Tablet PO 1,000 mcg DAILY NICHOLAS Administration Doxepin HCl 100 mg 01/19/21 21:00 01/28/21 20:31 Doxepin Hcl 25 Mg Capsule PO 100 mg BEDTIME NICHOLAS Administration Folic Acid 1 mg 01/22/21 13:35 01/29/21 08:10 Folic Acid 1 Mg Tablet PO 1 mg DAILY NICHOLAS Administration Gabapentin 100 mg 01/26/21 10:30 01/29/21 11:42 Gabapentin 100 Mg Capsule PO 100 mg BID PRN Administration Anxiety Gabapentin 400 mg 01/28/21 15:00 01/29/21 08:10 Gabapentin 400 Mg Capsule PO 400 mg TID NICHOLAS Administration Hydroxyzine HCl 50 mg 01/21/21 14:05 01/23/21 12:53 Hydroxyzine Hcl 25 Mg Tablet PO 50 mg Q6H PRN Administration Anxiety Levothyroxine Sodium 25 mcg 01/19/21 09:00 01/24/21 06:37 Levothyroxine Sodium 25 Mcg Tablet PO 25 mcg DAILY@0600 NICHOLAS Administration Magnesium Hydroxide 30 ml 01/21/21 14:05 Milk Of Magnesia 30 Ml Oral.Susp PO DAILY PRN Constipation Naltrexone HCl 50 mg 01/25/21 09:00 01/29/21 08:10 Naltrexone Hcl 50 Mg Tablet PO 50 mg DAILY NICHOLAS Administration Nicotine 14 mg 01/22/21 15:00 01/29/21 08:09 Nicotine 14 Mg Patch.Td24 TRANSDERMA 14 mg DAILY NICHOLAS Administration Nicotine Polacrilex 2 mg 01/22/21 14:57 01/25/21 05:31 Nicotine Polacrilex 2 Mg Lozenge BUCCAL 2 mg Q2H PRN Administration Nicotine Cravings Non-Formulary Medication 250 mg 01/29/21 09:00 Disulfuram PO DAILY NICHOLAS Thiamine HCl 100 mg 01/22/21 13:35 01/29/21 08:10 Thiamine Hcl 100 Mg Tablet PO 100 mg DAILY NICHOLAS Administration Trazodone HCl 50 mg 01/21/21 14:05 01/28/21 22:20 Trazodone Hcl 50 Mg Tablet PO 50 mg BEDTIME PRN Administration Insomnia Allergies Allergies Allergy/AdvReac Type Severity Reaction Status Date / Time No Known Allergies Allergy Verified 01/18/21 18:21 Assessment & Plan Assessment & Plan (1) MDD (major depressive disorder), recurrent, severe, with psychosis: Status: Acute Code(s): F33.3 - Major depressive disorder, recurrent, severe with psychotic symptoms Assessment and Plan: 1. Continue Wellbutrin XL 300mg po daily- pt denies hx of seizures while withdrawing. We did discussed that this medication lowers seizure threshold and her increase risk due to ongoing alcohol use. 2. Continue Doxepine 100mg po qhs. (2) Alcohol use disorder, severe, dependence: Status: Acute Code(s): F10.20 - Alcohol dependence, uncomplicated Assessment and Plan: 1. Keep Gabapentin 400mg po TID and PRN added 2. Thiamine 100mg po daily 3. Folic acid 1mg po daily 4. Naltrexon 50 mg. 5. Add Antabuse as per patient's request. (3) B12 nutritional deficiency: Status: Acute Code(s): E53.8 - Deficiency of other specified B group vitamins Assessment and Plan: 1. Continue cyanocobalamin 1000mcg po daily. Greater than 50% of the session was spent on counseling and/or coordination of care Reason for contiued inpatient stay Substantial Risk for: harm to self
[2021-01-29 13:43] LABS: Erythrocyte Sedimentation Rate 5 MM/HR (0-20)
[2021-01-29 18:00] VITALS: BP 143/78; PULSE 73; TEMP 37.1
[2021-01-29] MEDS: Doxepin HCl 25 MG CAPSULE 100 MG PO (20:20)
[2021-01-29] MEDS: traZODone HCL 50 MG TABLET PO ×2 (21:51→23:08)
[2021-01-29] MEDS: Acetaminophen 325 MG TABLET 650 MG PO (23:08)
[2021-01-30] MEDS: Nicotine 14 MG PATCH.TD24 TRANSDERMA (08:11)
[2021-01-30] MEDS: Baclofen 10 MG TABLET PO ×2 (08:12→20:09)
[2021-01-30] MEDS: Gabapentin 400 MG CAPSULE PO ×3 (08:12→20:09)
[2021-01-30] MEDS: Cyanocobalamin (Vitamin B-12) 1,000 MCG TABLET 1000 MCG PO (08:12)
[2021-01-30] MEDS: buPROPion HCl XL 300 MG TAB.ER.24H PO (08:12)
[2021-01-30] MEDS: Naltrexone HCl 50 MG TABLET PO (08:12)
[2021-01-30] MEDS: Folic Acid 1 MG TABLET PO (08:12)
[2021-01-30] MEDS: Thiamine HCL 100 MG TABLET PO (08:13)
[2021-01-30 08:26] VITALS: BP 101/64; PULSE 73; RESP 18; TEMP 36.7; O2SAT 98
[2021-01-30 08:27] LABS: Lyme Abs Screen <0.90 index
[2021-01-30] MEDS: Gabapentin 100 MG CAPSULE PO (10:29)
[2021-01-30] MEDS: Acetaminophen 325 MG TABLET 650 MG PO (17:32)
[2021-01-30] MEDS: hydrOXYzine HCL 25 MG TABLET 50 MG PO (17:32)
[2021-01-30 18:00] VITALS: BP 133/71; PULSE 70; RESP 18; TEMP 36.4; O2SAT 100
[2021-01-30] MEDS: Doxepin HCl 25 MG CAPSULE 100 MG PO (20:09)
[2021-01-30] MEDS: traZODone HCL 50 MG TABLET PO ×2 (20:12→22:08)
[2021-01-31 06:30] VITALS: BP 86/48; PULSE 70; RESP 16; TEMP 36.3; O2SAT 95
[2021-01-31 07:00] VITALS: BMI 21.4
--- NOTE | 2021-01-31 08:38 | P.CNNE_ITS ---
History of Present Illness Data of Consult Service Date: 01/31/21 Primary Care Provider: Unknown Physician 55 years old woman I was asked to see because of her abnormal brain MRI. She was on psychiatric floor at this time. She had previous history of depression and alcohol abuse. She said that she had been drinking heavily for couple of years. She would drink 4 to 6 hard liquor drinks every day. More recently she also was drinking hand ordinary seaman and has at least verbalized suicidal ideation. There was no history of seizure disorder, loss of vision, double vision, or any other stroke-like symptom. There was no history of head trauma. Review of Systems Review of Systems: No recent cold or flu-like illness or rash. [facility] Past Medical History Medical History Alcohol abuse Social History Social History Household Members: Family Housing: House Do you presently have visiting nurse or other home services: No Alcohol intake: current Alcohol intake frequency: 3 or more drinks per day Smoked in Last 30 Days: No Patient Interested in Nicotine Replacement: No Patient Given Instructions on How to Stop Smoking: No Use of substances other than those prescribed or required for medical reasons: No Substance Use Type: Caffiene Substance Use Frequency: Socially Last Used Substance: Days (ago) Currently Displaying Signs/Symptoms of Drug Intoxication Withdrawal: No Any prior treatment program specific to substance use: Yes (several detox admissions) Have you been hit, kicked, punched, or otherwise hurt by someone within the past year? If so, by whom?: No Do you feel safe in your current relationship?: Yes Is there a partner from a previous relationship who is making you feel unsafe now?: No Are you made to feel afraid or neglected: No Spiritual Healthcare Practices: nothing special Advance Directives: No Advance Directives Information Provided: Yes Healthcare Proxy: No Guardian: No Do you have thoughts of harming others: None Do you have a plan to hurt others: No Plan Recently lost weight without trying: No Patient : No : No Poor oral hygiene: No service: No Sexual orientation: Straight/Heterosexual Meds Allergies Allergy/AdvReac Type Severity Reaction Status Date / Time No Known Allergies Allergy Verified 01/18/21 18:21 Active Medications: Current Medications Generic Name Dose Route Start Last Admin Trade Name Freq PRN Reason Stop Dose Admin Acetaminophen 650 mg 01/21/21 14:05 01/30/21 17:32 Acetaminophen 325 Mg Tablet PO 650 mg Q6H PRN Administration Headache/Pain Mild Scale (1-3) Al Hydroxide/Mg Hydroxide 30 ml 01/21/21 14:05 Magnesium Hydrox/Alum Hydrox 30 Ml Oral.Susp PO Q6H PRN Heartburn/Nausea Baclofen 10 mg 01/19/21 09:00 01/30/21 20:09 Baclofen 10 Mg Tablet PO 10 mg BID NICHOLAS Administration Bupropion HCl 300 mg 01/21/21 09:00 01/30/21 08:12 Bupropion Hcl Xl 300 Mg Tab.Er.24h PO 300 mg DAILY NICHOLAS Administration Cyanocobalamin 1,000 mcg 01/22/21 13:45 01/30/21 08:12 Cyanocobalamin (Vitamin B-12) 1,000 Mcg Tablet PO 1,000 mcg DAILY NICHOLAS Administration Doxepin HCl 100 mg 01/19/21 21:00 01/30/21 20:09 Doxepin Hcl 25 Mg Capsule PO 100 mg BEDTIME NICHOLAS Administration Folic Acid 1 mg 01/22/21 13:35 01/30/21 08:12 Folic Acid 1 Mg Tablet PO 1 mg DAILY NICHOLAS Administration Gabapentin 100 mg 01/26/21 10:30 01/30/21 10:29 Gabapentin 100 Mg Capsule PO 100 mg BID PRN Administration Anxiety Gabapentin 400 mg 01/28/21 15:00 01/30/21 20:09 Gabapentin 400 Mg Capsule PO 400 mg TID NICHOLAS Administration Hydroxyzine HCl 50 mg 01/21/21 14:05 01/30/21 17:32 Hydroxyzine Hcl 25 Mg Tablet PO 50 mg Q6H PRN Administration Anxiety Levothyroxine Sodium 25 mcg 01/19/21 09:00 01/24/21 06:37 Levothyroxine Sodium 25 Mcg Tablet PO 25 mcg DAILY@0600 NICHOLAS Administration Magnesium Hydroxide 30 ml 01/21/21 14:05 Milk Of Magnesia 30 Ml Oral.Susp PO DAILY PRN Constipation Naltrexone HCl 50 mg 01/25/21 09:00 01/30/21 08:12 Naltrexone Hcl 50 Mg Tablet PO 50 mg DAILY NICHOLAS Administration Nicotine 14 mg 01/22/21 15:00 01/30/21 08:11 Nicotine 14 Mg Patch.Td24 TRANSDERMA 14 mg DAILY NICHOLAS Administration Nicotine Polacrilex 2 mg 01/22/21 14:57 01/25/21 05:31 Nicotine Polacrilex 2 Mg Lozenge BUCCAL 2 mg Q2H PRN Administration Nicotine Cravings Non-Formulary Medication 250 mg 01/29/21 09:00 Disulfuram PO DAILY NICHOLAS Thiamine HCl 100 mg 01/22/21 13:35 01/30/21 08:13 Thiamine Hcl 100 Mg Tablet PO 100 mg DAILY NICHOLAS Administration Trazodone HCl 50 mg 01/21/21 14:05 01/30/21 22:08 Trazodone Hcl 50 Mg Tablet PO 50 mg BEDTIME PRN Administration Insomnia Home Medications Medication Instructions Recorded Confirmed Last Taken Type baclofen 1 tab PO BID 01/19/21 01/19/21 Unknown History bupropion HCl 1 tab PO BEDTIME 01/19/21 01/19/21 Unknown History doxepin 1 cap PO BEDTIME 01/19/21 01/19/21 Unknown History hydroxyzine pamoate 50 mg PO QID PRN 01/19/21 01/19/21 Unknown History levothyroxine 1 tab PO DAILY 01/19/21 01/19/21 Unknown History trazodone 1 tab PO BEDTIME 01/19/21 01/19/21 Unknown History Physical Exam Vital Signs: Vital Signs: Last Vital Signs Temp 97.4 F 01/31/21 06:30 Pulse 70 01/31/21 06:30 Resp 16 01/31/21 06:30 BP 86/48 L 01/31/21 06:30 Pulse Ox 95 01/31/21 06:30 Body Mass Index 22.1 She was alert and awake with normal spontaneity of speech fluency comprehension and affect with little bit of anxiety. Pupils were equal and reactive to light and extraocular muscles were intact. Visual guzmán were full to confrontation. Face was symmetrical. There was no obvious focal arm or leg weakness. [id number] testing was normal. Deep tendon reflexes were trace in arms and knees and absent in ankles with flexor plantars. Trophic skin changes were noted and feet. Gait was normal. Speech was normal. Results Labs CBC & Chem 7: 01/18/21 20:24 01/18/21 20:25 Labs: Her MRI of brain with and without contrast was reviewed. It revealed numerous bilateral white matter hyperintensities without enhancement that were suggestive of underlying demyelinating disease. There were not typical for microvascular disease or strokes. Assessment and Plan (1) Demyelinating changes in brain: Status: Acute 55 years old woman with chronic depression and alcohol abuse with also history of suicidal ideation and exposure to hand ordinary seaman, [facility] and had an MRI of brain. She did not have any defined history of stroke-like syndrome or clinical demyelinating disease. 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 At this time I would recommend obtaining serum antinuclear antibody titer, sed rate, Lyme serology, syphilis serology, and HIV test. These changes in brain could result in chronic fatigue and forgetfulness but she had other significant risk factors for same. Her overall examination was suggestive of chronic neuropathy, which was also a manifestation of chronic alcohol abuse. If these blood tests were negative, no significant intervention was needed at this time. Patients with this type of demyelinating changes in brain, in her age group, usually do not progress. Procedures Date of Service Date of Service: 01/31/21
[2021-01-31] MEDS: buPROPion HCl XL 300 MG TAB.ER.24H PO (08:57)
[2021-01-31] MEDS: Cyanocobalamin (Vitamin B-12) 1,000 MCG TABLET 1000 MCG PO (08:57)
[2021-01-31] MEDS: Naltrexone HCl 50 MG TABLET PO (08:57)
[2021-01-31] MEDS: Gabapentin 400 MG CAPSULE PO (08:57)
[2021-01-31] MEDS: Baclofen 10 MG TABLET PO (08:57)
[2021-01-31] MEDS: Nicotine 14 MG PATCH.TD24 TRANSDERMA (08:57)
[2021-01-31] MEDS: Folic Acid 1 MG TABLET PO (08:57)
[2021-01-31] MEDS: Thiamine HCL 100 MG TABLET PO (08:57)
--- NOTE | 2021-01-31 10:01 | PM.PSYDC ---
DS: Providers Provider Date of Service: 01/31/21 Date of admission: 01/21/21 14:05 Primary care physician: Unknown Physician Consults: 01/29/21 10:38 Consult to Neurology Routine Consulting Provider: [facility] Reason for consultation: ? demyeliating disease Has provider been notified: Yes DS: Diagnosis Discharge Diagnosis (1) Demyelinating changes in brain: Status: Acute DS: Medications Discharge Medications Home Medications: Previous Rx's Medication Instructions Recorded baclofen 10 mg PO BID #60 tab 01/31/21 bupropion HCl 300 mg PO DAILY #30 tab 01/31/21 cyanocobalamin (vitamin B-12) 1,000 mcg PO DAILY #30 tab 01/31/21 [Vitamin B-12] doxepin 100 mg PO BEDTIME #30 cap 01/31/21 folic acid 1 mg PO DAILY #30 tab 01/31/21 gabapentin 100 mg PO BID PRN #60 cap 01/31/21 gabapentin 400 mg PO TID #90 cap 01/31/21 hydroxyzine HCl 50 mg PO Q6H PRN #30 tab 01/31/21 naltrexone 50 mg PO DAILY #30 tab 01/31/21 nicotine 14 mg TRANSDERMAL DAILY #30 ea 01/31/21 nicotine (polacrilex) 2 mg BUCCAL Q2H PRN #30 ea 01/31/21 thiamine mononitrate (vit B1) 100 mg PO DAILY #30 tab 01/31/21 trazodone 50 mg PO BEDTIME PRN #30 tab 01/31/21 Discharge Plan Discharge Patient Disposition: Home, Self-Care Discharge Diagnosis: MDD, recurrent, moderate Alcohol Use Disorder Referrals: Robert Vides (psychiatrist) [Other] - 03/01/21 11:00 am (Appointment will be telehealth. Please call and provide an email address you can be reached at prior to date of appointment) Physician,Unknown [Primary Care Provider] - 2 days Discharge Medications: New nicotine 14 mg/24 hr Patch 24 Hour 14 mg transdermal DAILY Qty: 30 RF: 0 doxepin 25 mg Capsule 100 mg PO BEDTIME Qty: 30 RF: 0 nicotine (polacrilex) 2 mg Mini Lozenge 2 mg buccal Q2H PRN (Reason: Nicotine Cravings) Qty: 30 RF: 0 cyanocobalamin (vitamin B-12) [Vitamin B-12] 1,000 mcg Tablet 1,000 mcg PO DAILY Qty: 30 RF: 0 folic acid 1 mg Tablet 1 mg PO DAILY Qty: 30 RF: 0 thiamine mononitrate (vit B1) 100 mg Tablet 100 mg PO DAILY Qty: 30 RF: 0 doxepin 100 mg capsule 100 mg PO BEDTIME Qty: 30 RF: 0 baclofen 10 mg tablet 10 mg PO BID Qty: 60 RF: 0 cyanocobalamin (vitamin B-12) 1,000 mcg capsule 1,000 mcg PO DAILY Qty: 30 RF: 0 bupropion HCl [Wellbutrin XL] 300 mg tablet extended release 24 hr 300 mg PO QAM Qty: 30 RF: 0 folic acid 1 mg tablet 1 mg PO DAILY Qty: 30 RF: 0 gabapentin 400 mg capsule 400 mg PO TID Qty: 90 RF: 0 gabapentin 100 mg capsule 100 mg PO BID PRN (Reason: anxiety) Qty: 60 RF: 0 naltrexone 50 mg tablet 50 mg PO DAILY Qty: 30 RF: 0 trazodone 50 mg tablet 50 mg PO BEDTIME PRN (Reason: insomnia) Qty: 30 RF: 0 Discontinued hydroxyzine pamoate 50 mg capsule 50 mg PO QID PRN (Reason: Anxiety) RF: 0 levothyroxine 25 mcg tablet 1 tab PO DAILY RF: 0 trazodone 100 mg tablet 1 tab PO BEDTIME RF: 0 baclofen 10 mg tablet 1 tab PO BID RF: 0 doxepin 100 mg capsule 1 cap PO BEDTIME RF: 0 bupropion HCl 300 mg tablet extended release 24 hr 1 tab PO BEDTIME RF: 0 Discharge Orders: Discharge Order (Routine); Ordered 01/31/21 Ordered By: Roshni Mcneil Diet: regular diet Activity on Discharge: As tolerated Stand Alone Forms: Patient Portal Discharge page, Community Support Activity Restrictions/Additional Instructions: Please resume all home medications as prescribed. The recovery team will be contacting you in the morning to discuss options for your continued abstinence from alcohol. Return to the emergency room for any acute worsening of your symptoms, or should you require further support. Care Plan Goals: 1. maintain safety- harm reduction Health Concerns: Follow up with PCP- repeat TSH, Free T3- levothyroxine stopped due to low TSH, normal Free T3 Follow up B12 levels, low on admission- 143, started on cyanocobalamin Plan of Treatment: 1. Follow up with referrals 2. Take medications as prescribed. 3. Go to [facility] ED or call 911 in event of emergency. Assessment: Stable, no SI, improved mood. motivation to continue substance use treatment. Patient Instructions: Alcohol Dependence (ED), Alcohol Use Disorder (ED) Discharge Date/Time: 01/31/21 13:50 Mental Status Exam Mental Status Exam Narrative: Appearance: casually groomed, fair hygiene, in NAD Behavior: calm, cooperative Psychomotor: no agitation or retardation noted Speech: clear, normal rate/rhythm/volume, spontaneous TP: linear TC: no signs of psychosis, hopeless/helpless Mood: better Affect:brighter SI:none, no plan or intent HI:none AH/VH:none Delusions:none Insight/judgment:fair x 2. Memory/cog: alert, oriented x 3. Data Data Completed and Pending Completed studies during hospitalization [Text1]: 01/29/21 01/29/21 01/29/21 12:04 12:04 12:04 ESR 5 TSH 0.18 L Free T4 Rheumatoid Factor < 15.0 DOMENIC Screen DOMENIC Titer DOMENIC Titer 2 DOMENIC Titer 3 DOMENIC Pattern DOMENIC Pattern 2 DOMENIC Pattern 3 Anti-Cardiolipin IgG Ab Pending Anti-Cardiolipin IgM Ab Pending Lyme Screen IgG & IgM Lyme Progressive Test 01/29/21 01/29/21 01/29/21 12:04 12:04 12:04 ESR TSH Free T4 0.78 Rheumatoid Factor DOMENIC Screen Pending DOMENIC Titer Pending DOMENIC Titer 2 Pending DOMENIC Titer 3 Pending DOMENIC Pattern Pending DOMENIC Pattern 2 Pending DOMENIC Pattern 3 Pending Anti-Cardiolipin IgG Ab Anti-Cardiolipin IgM Ab Lyme Screen IgG & IgM <0.90 Lyme Progressive Test TNP Imaging Diagnostic Imaging Impressions Brain MRI 01/25/21 11:59 IMPRESSION: There are T2 signal changes throughout the supratentorial white matter with a periventricular concentration. Differential considerations include the sequela of demyelinating disease, vasculopathy, or other white matter process. There are no enhancing lesions. DS: Summary Hospital Course Hospital Course: Mrs. Soto is a 55 year old woman with hx of MDD and alcohol dependence who initially came to [facility] ED on 01/18/2021 requesting detox program. 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 Day after being in ED, pt reported suicidal ideation without a plan, increased symptoms of depression, guilt/shame related to ongoing alcohol use. On the unit, Mrs. Soto endorsed depressed mood, anhedonia, feeling lonely and empty at times, shame/guilt related to ongoing alcohol use, poor sleep/appetite. She endorsed passive suicidal ideation but denied any plan or intent. She reports that increase in alcohol use started back in 2019 after her mother . She reports remote history of alcohol use prior to her marriage but states that after she had her oldest son she stopped drinking and lived a healthy life style. She notes that current alcohol use affecting her relationship with family and her career that she enjoyed so much for many years. She feels devastated and disappointed by ongoing alcohol use despite having been in different residential programs during the last year. Past Psychiatric History: Inpatient: this is her first inpatient admission OP: none currently Pt has completed multiple residential substance use treatment programs at [place], [place]. Suicide attempts: none HOSPITAL COURSE Mrs. Soto was admitted on a CV and placed on 15 minutes checks for safety. She endorsed feeling hopeless/helpless, shame related to ongoing substance use, passive suicidal ideation but denied any plan or intent. After discussing risks, benefits and alternative treatment option, Mrs. Soto agreed to continue doxepine for depression and sleep as well as wellbutrin. She agreed to try naltrexon for alcohol cravings, which she tolerated well. She was also started on Gabapentin for anxiety. Her affect gradually brighten. She reported less symptoms of depression although noted that road ahead in terms of recovery is long and hard. She agreed to continue residential substance use treatment. She denied suicidal ideation several days prior to discharge. Collateral information was gathered from her who reported some concerns in terms of cognitive. Note that MRI was done here in hospital. No overt cognitive impairment noted on MOCA. However, pt was advised to follow up with neurology. At time of discharge, denied any safety concerns although concern about pt's ability to sustain sobriety. There were no incidences of disruptive behaviors nor use of restraints. Pt was visible in the unit, social with select peers. She attended assigned groups. Status at Discharge Cognitive/behavioral status at discharge: Pt with brighter affect, less symptoms of depression although worried about effects of alcohol use on her family and ability to function. Motivated to continue alcohol use treatment. No SI/HI. Functional status at discharge: independent ambulation Overall status at discharge: patient is progressing back to baseline Time Spent with Patient Time attestation: Total time spent providing and/or coordinating discharge services: Time spent: Greater than 30 minutes
[2021-01-31] MEDS: Acetaminophen 325 MG TABLET 650 MG PO (10:35)
[2021-01-31 10:57] LABS: COVID-19 Test Negative (Negative); IDNOW Serial# 9DD0AD1C
[2021-01-31] MEDS: Gabapentin 100 MG CAPSULE PO (11:55)
--- NOTE | 2021-01-31 12:53 | PC.NURSE ---
PT IS AWARE AND READY FOR DISCHARGE. SHE REPORTS NO CURRENT SUBSTANCE USE DESIRES AT THIS TIME. PT DENIES ANY SUICIDAL OR HOMICIDAL IDEATIONS. PT HAS BEEN ATTENDING GROUPS. SHE IS GOAL ORIENTED. SHE HAS BEEN INDEPENDENTLY TAKING CARE OF HER ADLS. PT STATES THAT THE COMBINATION OF MEDS SHE IS ON SEEMS TO BE WORKING WONDERS . PT IS COVID NEGATIVE. PT REPORTS A SIGNIFICANT DECREASE IN HER ANXIETY AND DEPRESSION. SHE FEELS HOPEFUL FOR THE TREATMENT PROGRAM SHE IS BEING DISCHARGED TO. PT HAS BEEN EATING WELL. SHE IS SLEEPING ADEQUATELY WITH MEDICATIONS. PTS PAPERWORK WILL BE FAXED TO PROVIDERS PER PROTOCOL.
[2021-01-31 16:42] LABS: Cardiolipin IgG Ab <14 GPL; Cardiolipin IgM Ab <12 MPL
[2021-01-31 23:57] LABS: Anti Nuclear Antibody Screen POSITIVE (NEGATIVE)
== END 2021-01-31 13:50 | disposition home or self-care (01) | DRG 751 ==
LOC: HO.ED 01-19 08:09 → HO.PM5 01-21 14:18
PROVIDERS: Admitting Provider Psychiatry & Neurology Psychiatry; Emergency Provider Student in an Organized Health Care Education/Training Program; Visit Provider Social Worker
DX: F33.3 Major depressive disorder, recurrent, severe with psychotic symptoms (principal); R45.851 Suicidal ideations; F10.20 Alcohol dependence, uncomplicated; E53.8 Deficiency of other specified B group vitamins; Z20.822 Contact with and (suspected) exposure to COVID-19; Z79.899 Other long term (current) drug therapy
CPT/HCPCS: 36415; 70553; 80053; 80061; 80143; 80179; 80307; 80320; 81001; 82607; 82746; 83036; 83735; 84439; 84443; 85025; 85610; 85652; 86038; 86039; 86147; 86431; 86617; 86618; 87635; 93005; 99285; A9585

== ENCOUNTER 2022-01-20 11:00 | Outpatient (RCR) | payer OTHER, SELFPAY ==
[2021-12-31 12:12] VITALS: BMI 18.8
--- NOTE | 2021-12-31 14:29 | PC.ADMIT ---
Patient is a 56 year old female who self referred to [facility] d/t struggling with chronic PTSD symptoms including nightmares, intrusive memories, flashbacks, and startle response. Also struggling with anxiety sxs. Patient recently transitioned to her home after being discharged from a sober living facility called [facility] on 12/27/21 where she lived for the past 9 months. Patient looking for more support in managing her PTSD and anxiety sxs. Patient has a long history of ETOH use and admissions to detox and rehabs along with 2 inpatient mental health admissions. Patient reports she was drinking ETOH daily in 2018 for a year and afterwards she would binge drink. Reports prior to going into rehab she was binge drinking which included using Listerine and rubbing ETOH. Patient reports sobriety from ETOH for the past 11 months. Patient currently has a sponsor and is attending AA daily. She is also on Disulfiram and is taking monthly Vivitrol injections last injection on 12/27/21. Asked patient if she had rubbing ETOH or listerine or any other ETOH containing products in the home and she stated she has Listerine. After talking with patient regarding this she is going to ask her to dispose of this. Patient is alert and oriented x4. Calm and cooperative. Presents with depressed mood, anxious affect. Speech appears pressured, expansive. Denied SI. Medications reconciled with patient and patient's pharmacy. Patient reports taking medications as prescribed.
--- NOTE | 2022-01-01 09:55 | PC.NURSE ---
Patient did not show up to the program this morning. I called patient and left her messages to call me back at 0915, 0930, and 0945. Patient did not respond. Called and spoke to her Ankush who stated she is sleeping in and she is physically tired from yesterday. He assured me she is not in trouble appearing to make reference to relapse, and stated she is exhausted. I asked him to have her call me when she wakes up. team is aware.
--- NOTE | 2022-01-01 13:58 | PC.NURSE ---
The client overslept and did not come to the program today. I called her and reminder her that the program expectation is for her to attend each day. She agrees to this and states that she will be in tomorrow.
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
--- NOTE | 2022-01-06 08:02 | PC.NURSE ---
case opened in treatment team
--- NOTE | 2022-01-06 09:34 | PC.NURSE ---
Patient reports she has a f/u appointment for U/S of her Thyroid on January 28, 2022. Reports she has an appointment for Vivitrol Injection on January 28, 2022 at 2:15. Patient also has an appointment at [facility] on January 30, 2022 at 1:[address] Abad.
--- NOTE | 2022-01-10 23:34 | P.PNPSP_ITS ---
Subjective Subjective Date of Service: 01/10/22 Reason For Visit: MDD,depression,anxiety,alcohol misuse Interim History: Patient seen and discussed with team. Patient evaluated today and upon interview she reports she did not prozac until yesterday. Reports positive benefit on lower trazodone dose, sleeping well, energy is better. Pt reports she still feels depressed, restricting, not attending to self care, anhedonia, feeling lackluster. Discussed feelings of shame. Medication Compliance: Yes Side effects from medications: No Attending Groups: Yes Review of Systems Acute medical concerns: No Medical Review of Systems: unchanged Mental Status Exam Mental Status Exam Narrative: A&O. Well groomed, good hygiene, normal body habitus. Good eye contact, attentive. No Tics or Tremors. No abnormal involuntary movements. Calm, cooperative, engaged. Non-pressured speech, spontaneous with regular rate and rhythm, normal volume and prosody. No prolonged speech latency or dysarthria. Mood is ?depressed,? affect is anxious, nervous. Denies SI/SIB/HI upon inquiry. Denies A/VH or delusional thought content. Thoughts are coherent, organized. No known cognitive or memory impairment. Insight/ Judgment fair and adequate. Diagnostics Vital Signs (24Hr): BMI result Body Mass Index 18.8 Assessment & Plan Assessment & Plan (1) MDD (major depressive disorder), recurrent, severe, with psychosis: Status: Acute Code(s): F33.3 - Major depressive disorder, recurrent, severe with psychotic symptoms (2) Alcohol use disorder, severe, dependence: Status: Acute Code(s): F10.20 - Alcohol dependence, uncomplicated Plan Pt recently started prozac 10 mg yesterday, denies activating SE, will monitor for benefit. Continue trazodone 100 mg QHS for sleep. Pt is abstinent from a lcohol. Denies cravings. Patient educated on: medication risk/benefits, substance abuse and therapeutic strategies Certification I certify that partial hospital treatment is medically necessary due to the symptoms and problems resulting from the patient's mental illness and the failure to treat the patient at the partial hospital level of care would likely result in the patient requiring inpatient psychiatric care which could not be prevented at a less intensive level of care. I spent minutes with the patient and/or on the patient floor today, greater than?50% of which was spent counseling/coordinating care. Discharge Plan Discharge Attending provider: Fito Pike Additional Instructions: Neurology appointment at [facility] 4th floor [address] Abad on January at 1:00 PM. Office # [phone]. Medications: New fluoxetine [Prozac] 10 mg capsule 10 mg PO DAILY Qty: 14 0RF Continued trazodone 100 mg Tablet 100 mg PO BEDTIME Qty: 30 1RF No Action nicotine 14 mg/24 hr Patch 24 Hour 14 mg transdermal DAILY Qty: 30 0RF nicotine (polacrilex) 2 mg Mini Lozenge 2 mg buccal Q2H PRN (Reason: Nicotine Cravings) Qty: 30 0RF folic acid 1 mg Tablet 1 mg PO DAILY Qty: 30 0RF bupropion HCl [Wellbutrin XL] 300 mg tablet extended release 24 hr 300 mg PO QAM Qty: 30 1RF Rx Instructions: Take with 150 mg tab gabapentin 400 mg capsule 400 mg PO TID Qty: 90 1RF disulfiram 250 mg tablet 250 mg PO DAILY Qty: 30 1RF thiamine HCl (vitamin B1) 100 mg tablet 100 mg PO DAILY Qty: 30 1RF bupropion HCl 150 mg Tablet Extended Release 24 Hr 150 mg PO QAM 0RF Rx Instructions: Take with 300 mg tab clonidine HCl 0.1 mg Tablet 0.1 mg PO TID PRN (Reason: Anxiety) 0RF cyanocobalamin (vitamin B-12) [Vitamin B-12] 100 mcg Tablet 100 mcg PO DAILY 0RF trazodone 50 mg Tablet 50 mg PO BEDTIME PRN (Reason: Insomnia) 0RF Vivitrol 380 mg Suspension,Extended Rel Recon 380 mg IM QMONTH 0RF Stand Alone Forms: Patient Portal Discharge page
--- NOTE | 2022-01-17 19:29 | P.PNPSP_ITS ---
Subjective Subjective Date of Service: 01/17/22 Reason For Visit: MDD,depression,anxiety,alcohol misuse Interim History: Patient seen and discussed with team. Patient evaluated today and upon interview she says she saw her OP prescriber, she is on board with the changes made at [facility]. Says I feel better, no side effects on prozac. Energy is better. Feels more optimistic, less overwhelmed. Will discharge from [facility] on Thursday. Appetite is better this week. Says sobriety is going well. Going to AA meetings. Medication Compliance: Yes Side effects from medications: No Attending Groups: Yes Review of Systems Acute medical concerns: No Medical Review of Systems: unchanged Mental Status Exam Mental Status Exam Narrative: A&O. Well groomed, good hygiene, normal body habitus. Good eye contact, attentive. No Tics or Tremors. No abnormal involuntary movements. Calm, cooperative, engaged. Non-pressured speech, spontaneous with regular rate and rhythm, normal volume and prosody. No prolonged speech latency or dysarthria. Mood is ?better,? affect is euthymic. Denies SI/SIB/HI upon inquiry. Denies A/VH or delusional thought content. Thoughts are coherent, organized. No known cognitive or memory impairment. Insight/ Judgment fair and adequate. Diagnostics Vital Signs (24Hr): BMI result Body Mass Index 18.8 Assessment & Plan Assessment & Plan (1) MDD (major depressive disorder), recurrent, severe, with psychosis: Status: Acute Code(s): F33.3 - Major depressive disorder, recurrent, severe with psychotic symptoms (2) Alcohol use disorder, severe, dependence: Status: Acute Code(s): F10.20 - Alcohol dependence, uncomplicated Plan Pt reports positive benefit on prozac 10 mg daily, denies activating SE, will monitor for benefit. Continue trazodone 100 mg QHS for sleep. Pt is abstinent from alcohol. Denies cravings. Monitor medication for benefit Discharge upon stabilization Obtain info from collateral contacts as needed Follow up per program protocol Patient educated on: medication risk/benefits Certification I certify that partial hospital treatment is medically necessary due to the symptoms and problems resulting from the patient's mental illness and the failure to treat the patient at the partial hospital level of care would likely result in the patient requiring inpatient psychiatric care which could not be prevented at a less intensive level of care. I spent minutes with the patient and/or on the patient floor today, greater than?50% of which was spent counseling/coordinating care. Discharge Plan Discharge Attending provider: Fito Pike Additional Instructions: Neurology appointment at [facility] 4th floor [address] Abad on January at 1:00 PM. Office # [phone]. Shasha Patelmadyson ORIENTAL MEDICINE PRACTITIONER 01/22/22, Triny Oliver OPERATION SPECIALIST 02/26/22 [facility] Medications: New fluoxetine [Prozac] 10 mg capsule 10 mg PO DAILY Qty: 14 0RF Continued trazodone 100 mg Tablet 100 mg PO BEDTIME Qty: 30 1RF No Action nicotine 14 mg/24 hr Patch 24 Hour 14 mg transdermal DAILY Qty: 30 0RF nicotine (polacrilex) 2 mg Mini Lozenge 2 mg buccal Q2H PRN (Reason: Nicotine Cravings) Qty: 30 0RF folic acid 1 mg Tablet 1 mg PO DAILY Qty: 30 0RF bupropion HCl [Wellbutrin XL] 300 mg tablet extended release 24 hr 300 mg PO QAM Qty: 30 1RF Rx Instructions: Take with 150 mg tab disulfiram 250 mg tablet 250 mg PO DAILY Qty: 30 1RF thiamine HCl (vitamin B1) 100 mg tablet 100 mg PO DAILY Qty: 30 1RF bupropion HCl 150 mg Tablet Extended Release 24 Hr 150 mg PO QAM 0RF Rx Instructions: Take with 300 mg tab clonidine HCl 0.1 mg Tablet 0.1 mg PO TID PRN (Reason: Anxiety) 0RF cyanocobalamin (vitamin B-12) [Vitamin B-12] 100 mcg Tablet 100 mcg PO DAILY 0RF trazodone 50 mg Tablet 50 mg PO BEDTIME PRN (Reason: Insomnia) 0RF Vivitrol 380 mg Suspension,Extended Rel Recon 380 mg IM QMONTH 0RF gabapentin 400 mg capsule 400 mg PO BID 0RF Stand Alone Forms: Patient Portal Discharge page
--- NOTE | 2022-01-20 11:46 | PC.NURSE ---
Patient scheduled to discharge from [facility] today. Reviewed patient medications with patient. Patient stated 3 months ago she decreased Gabapentin with her prescriber Triny Oliver from 400 mg TID to 400 mg BID. Patient reports she is taking medications as prescribed. Denied SI. Denied ETOH use.
--- NOTE | 2022-01-20 14:05 | PC.NURSE ---
Patient reports she has a spot on her back that she wants a multimedia specialist to take a look at. She stated she did not have time to call [facility] whom she has been with before. She stated she would like to go there again however did not know if they took her new insurance. I offered to call them. [facility] does not take patient's insurance however they stated she could pay out of pocket. I called patient to let her know. Patient stated she plans on looking up her insurance plan to see who takes her insurance. I looked patient's insurance plan online and let patient know that [facility] on [address] [place] [address] takes her insurance and gave patient the number to call to f/u #[phone].
--- NOTE | 2022-01-20 16:23 | PC.NURSE ---
i left a message regarding the clients completion of the program for Shasha Nascimento [facility].
== END 2022-01-20 23:59 | disposition home or self-care (01) ==
LOC: HO.PHPA 11:00
PROVIDERS: Visit Provider Psychiatry & Neurology Psychiatry
DX: F33.3 Major depressive disorder, recurrent, severe with psychotic symptoms (principal); F10.20 Alcohol dependence, uncomplicated; Z79.899 Other long term (current) drug therapy
CPT/HCPCS: 90853

== ENCOUNTER 2022-04-07 13:55 | Outpatient (REF) | payer OTHER, SELFPAY ==
[2022-04-07 18:19] LABS: Vitamin B12 289 pg/mL (200-900)
[2022-04-09 12:36] LABS: Anti DNA DS Antibody <1 IU/mL
== END 2022-04-07 13:56 | disposition home or self-care (01) ==
LOC: HO.LAB 13:55
PROVIDERS: Visit Provider Psychiatry & Neurology Neurology
DX: E53.8 Deficiency of other specified B group vitamins (principal); G35 Multiple sclerosis
CPT/HCPCS: 36415; 82607; 86225